=== PATIENT | female | born 1930 | race Caucasian/White ===

== ENCOUNTER 2017-02-10 10:23 | Inpatient (IN) ==
--- NOTE | 2017-02-10 11:16 | Emergency Department Note ---
Disposition Clinical Impression: Pulmonary mass, Atrial fibrillation with RVR, Acute CHF (congestive heart failure), Elevated troponin Disposition: Admitted As Inpatient Condition: Fair General Adult HPI - General Chief complaint: ED Shortness of Breath/Dyspnea Stated complaint: Difficulty in Breathing Time Seen by Provider: 02/10/17 10:41 Source: patient Mode of arrival: ambulatory Limitations: no limitations Nursing Notes Reviewed: Yes Vital Signs Reviewed: Yes - History of Present Illness HPI Narrative: 86 yo female presents with SOB and chest pressure x 2 wks. Worse with laying flat. Patient has dyspnea on exertion which has become significantly increased over the past few days.. +cough which is productive of yellow-green sputum. Does not take any medications. Multiple falls over the past few months. Patient states chest pain is a pressure in the center of her chest that does not radiate. Pain Scale: 4 - Related Data Home Medications Medication Instructions Recorded Confirmed No Known Home Drugs 02/10/17 02/10/17 Allergies Allergy/AdvReac Type Severity Reaction Status Date / Time diphenhydramine AdvReac Hallucinati Verified 02/10/17 15:13 [From Hernandez] ng All systems ED: reviewed and negative except as stated. Constitutional: Denies: fever, chills, weakness, weight change Cardiovascular: Reports: chest pain, dyspnea on exertion, orthopnea Respiratory: Reports: dyspnea. Denies: cough, wheezes, hemoptysis Gastrointestinal: Denies: abdominal pain, nausea, vomiting, diarrhea Past Medical History - Past Medical History Attestation: Yes The following information was validated with the patient. Source: patient Medical history: Reports: cancer Psychiatric history: Reports: no psych history - Social History Smoking Status: Current every day smoker Smokeless Tobacco Status: No Alcohol use: Reports: none Drug use: Reports: none Physical Exam General: Alert and in no acute distress Skin: Warm, dry, intact Head: Normocephalic and atraumatic Neck: Supple, trachea midline and no tenderness Cardiovascular: RRR, no murmur, normal perfusion Respiratory: Diminished breath sounds on the right however there is breast sounds bilaterally. Musculoskeletal: Normal strength, no tenderness, swelling or deformity GI: Soft, nontender, nondistended. Bowel sounds present Neuro: A&O to person, place, time and situation. No focal deficits noted on exam Psychiatric: cooperative and appropriate mood and affect. - General Limitations: no limitations General appearance: alert, in no apparent distress Course Vital Signs Temperature 97.9 F 02/10/17 10:24 Pulse Rate 96 02/10/17 10:24 Respiratory Rate 26 02/10/17 10:24 Blood Pressure 180/93 02/10/17 10:24 O2 Sat by Pulse Oximetry 91 02/10/17 10:24 Temperature 97.6 F 02/11/17 18:52 Pulse Rate 60 02/11/17 22:35 Respiratory Rate 16 02/11/17 22:35 Blood Pressure 99/56 02/11/17 18:52 O2 Sat by Pulse Oximetry 99 02/11/17 22:35 Oxygen Delivery Oxygen Delivery Nasal Cannula Medical Decision Making - MDM Narrative Medical decision making narrative: Patient developed acute onset atrial fibrillation with rapid ventricular rate. She did not complain of pain or have altered mental status however her blood pressure dropped to about 85 systolic. This improved with IV fluids. She was given Cardizem which further improved her blood pressure. Patient then spontaneously converted to a normal sinus rhythm. Patient will be admitted to the hospital for further evaluation of her A. fib with RVR as well as her right- sided lung mass and further evaluation of mass and pleural effusion - Medical Records Medical records reviewed: Yes I reviewed the patient's medical records. - Lab Data Lab results reviewed: Yes I reviewed the patient's lab results. Result diagrams: 02/11/17 07:05 02/11/17 07:05 Lab Results 02/10/17 02/10/17 02/10/17 Range/Units 11:29 11:29 11:29 WBC 9.5 (4.3-11.1) K/mcL RBC 4.35 (3.82-4.97) M/mcL Hgb 12.7 (11.5-15.4) g/dL Hct 41.3 (35.3-44.9) % MCV 94.9 (83.0-100.0) fL MCH 29.2 (28.0-33.3) pg MCHC 30.8 L (31.6-35.5) g/dL RDW 15.7 H (11.5-14.5) % Plt Count 256 (140-400) K/mcL MPV 9.5 (9.4-12.4) fL Immature Gran % 0.5 (0-4) % Seg Neutrophils % 84.5 % Lymphocytes % 5.7 % Monocytes % 8.1 % Eosinophils % 0.8 % Basophils % 0.4 % Neutrophils # 8.0 (1.6-8.9) K/mcL Lymphocytes # 0.5 L (0.6-4.6) K/mcL Monocytes # 0.8 (0.0-1.3) K/mcL Eosinophils # 0.1 (0.0-0.6) K/mcL Basophils # 0.0 (0.0-0.2) K/mcL Sodium 142 (136-145) mEq/L Potassium 4.6 H (3.5-4.5) mEq/L Chloride 109 (98-109) mEq/L Carbon Dioxide 28 (19-29) mEq/L BUN 29 H (7-20) mg/dL Creatinine 1.06 (0.57-1.11) mg/dL Est GFR ( Amer) 59 L (> 60) Est GFR (Non-Af Amer) 49 L (> 60) BUN/Creatinine Ratio 27 H (6-26) Glucose 113 H (70-99) mg/dL Calculated Osmolality 301 H (280-300) Lactic Acid 1.1 (0.5-2.2) mmol/L Calcium 8.5 L (8.6-10.8) mg/dL Troponin I (0-0.03) ng/mL B-Natriuretic Peptide (0-100) pg/mL 02/10/17 02/10/17 02/10/17 Range/Units 11:29 11:29 13:20 WBC (4.3-11.1) K/mcL RBC (3.82-4.97) M/mcL Hgb (11.5-15.4) g/dL Hct (35.3-44.9) % MCV (83.0-100.0) fL MCH (28.0-33.3) pg MCHC (31.6-35.5) g/dL RDW (11.5-14.5) % Plt Count (140-400) K/mcL MPV (9.4-12.4) fL Immature Gran % (0-4) % Seg Neutrophils % % Lymphocytes % % Monocytes % % Eosinophils % % Basophils % % Neutrophils # (1.6-8.9) K/mcL Lymphocytes # (0.6-4.6) K/mcL Monocytes # (0.0-1.3) K/mcL Eosinophils # (0.0-0.6) K/mcL Basophils # (0.0-0.2) K/mcL Sodium (136-145) mEq/L Potassium (3.5-4.5) mEq/L Chloride (98-109) mEq/L Carbon Dioxide (19-29) mEq/L BUN (7-20) mg/dL Creatinine (0.57-1.11) mg/dL Est GFR ( Amer) (> 60) Est GFR (Non-Af Amer) (> 60) BUN/Creatinine Ratio (6-26) Glucose (70-99) mg/dL Calculated Osmolality (280-300) Lactic Acid 1.0 (0.5-2.2) mmol/L Calcium (8.6-10.8) mg/dL Troponin I 0.07 H* (0-0.03) ng/mL B-Natriuretic Peptide 3138 H (0-100) pg/mL - Radiology Data Radiology results reviewed: Yes I reviewed the patient's radiology results. - EKG Data EKG #1 EKG attestation: Yes I reviewed and interpreted this EKG. EKG results narrative: EKG #1 -[address] depression in V5, B6 EKG #2 - heart rate [address] depression in V4, V5, V6 EKG #3 - heart rate 81, normal sinus rhythm with improved ST depression. Critical Care Time Critical Care Time: Yes Total Critical Care Time: 120 Attestation: The high probability of a clinically significant, sudden or life threatening deterioration of the perivascular and respiratory system(s) required my full and direct attention, intervention and personal management. The aggregate critical care time was 120 minutes. This time is in addition to time spent performing reported procedures but includes the following: x Data Review and interpretation x Patient assessment and monitoring of vital signs x Documentation x Medication orders and management
[2017-02-10 11:37] LABS: Basophils % 0.4 %; Eosinophils # 0.1 K/mcL (0.0-0.6); Eosinophils % 0.8 %; Hematocrit 41.3 % (35.3-44.9); Hemoglobin 12.7 g/dL (11.5-15.4); Immature Granulocytes % 0.5 % (0-4); Lymphocytes # 0.5 K/mcL (0.6-4.6); Lymphocytes % 5.7 %; Mean Corpuscular HGB Conc 30.8 g/dL (31.6-35.5); Mean Corpuscular Hemoglobin 29.2 pg (28.0-33.3); Mean Corpuscular Volume 94.9 fL (83.0-100.0); Mean Platelet Volume 9.5 fL (9.4-12.4); Monocytes # 0.8 K/mcL (0.0-1.3); Monocytes % 8.1 %; Platelet Count 256 K/mcL (140-400); Red Blood Count 4.35 M/mcL (3.82-4.97); Red Cell Distribution Width 15.7 % (11.5-14.5); Segmented Neutrophils % 84.5 %
[2017-02-10 11:49] LABS: Calcium 8.5 mg/dL (8.6-10.8); Potassium 4.6 mEq/L (3.5-4.5)
--- NOTE | 2017-02-10 13:15 | Electrocardiograph Report ---
[email or web address] Test Date: 2017-02-10 Pat Name: Drea Bains Department: 105 Room: Gender: F Director Hardware: : 1930 Requested By: Milton Sinclair Order Number: [id number] Reading MD: John Nesbitt DO Measurements Intervals [place] Rate: 95 P: ID: 0 QRS: -13 QRSD: 79 T: 27 QT: 333 QTc: 386 Interpretive Statements ATRIAL FIBRILLATION ST DEPRESSION, CONSIDER SUBENDOCARDIAL INJURY [0.1+ mV ST DEPRESSION] Electronically Signed On 02-10-2017 13:13:22 EDT by John Nesbitt DO
[2017-02-10] MEDS ORDERED: *HR* Adenosine 6 MG/2 ML SYRINGE IVP ONE (15:38)
[2017-02-10] MEDS ORDERED: 0.9 % Sodium Chloride 1,000 ML ONE (15:48)
[2017-02-10] MEDS ORDERED: Calcium Gluconate 1,000 MG in D5% in Water 100 ML IVPB ONE (15:49)
[2017-02-10] MEDS ORDERED: Naloxone 0.4 MG/ML INJ IVP PRN (16:26)
[2017-02-10] MEDS ORDERED: Acetaminophen 325 MG TABLET PO PRN (16:26)
[2017-02-10] MEDS ORDERED: Ondansetron 4 MG/2 ML VIAL IVP PRN (16:26)
[2017-02-10] MEDS ORDERED: 0.9 % Sodium Chloride 1,000 ML IVC SCH (16:30)
--- NOTE | 2017-02-10 17:02 | Internal Med History&Physical ---
Date of Encounter: 02/10/17 Time of Encounter: 16:00 Assessment and Plan (1) Community acquired pneumonia Current visit: Yes Status: Acute Patient has shortness of breath and cough. Yellowish sputum. Right-sided lung collapse. Consider community acquired pneumonia, but does still need to rule out malignancy. - We will place patient on azithromycin and Rocephin. - Blood culture and sputum culture. - Oxygen supportive treatment - Consult pulmonology. (2) Collapse of right lung Current visit: Yes Status: Acute Probably due to pneumonia or malignancy. Pulmonology consult. (3) Atrial fibrillation with rapid ventricular response Current visit: Yes Status: Acute Patient has no history of A. fib. When patient presented to ER, EKG shows A. fib. Later the patient developed rapid ventricular response. - Place patient on Cardizem drip. - Continuous cardiac monitoring. - I discussed that the anticoagulation option with patient's daughter, Shanika Miguel, she does not want start anticoagulation. Aspirin placed. - We will further consult cardiology for management. (4) Breast cancer Current visit: Yes Status: Acute History of breast cancer S/P surgery in 1984 Qualifiers: Breast location: unspecified site of breast Estrogen receptor status: unspecified Patient sex: female Laterality: unspecified laterality Qualified Code(s): C50.919 - Malignant neoplasm of unspecified site of unspecified female breast (5) Tobacco abuse Current visit: Yes Status: Acute Patient quit smoking for 2 weeks. (6) DVT prophylaxis Current visit: Yes Status: Acute EPCD, no heparin considering possible need bronchoscope. (7) Elevated troponin Current visit: Yes Status: Acute Patient has elevated troponin. Denies chest pain. Probably demand ischemia considering patient has A. fib. - We will check 3 sets of troponin - Continuous cardiac monitoring (8) Elevated brain natriuretic peptide (BNP) level Current visit: Yes Status: Acute Will check echocardiogram to rule out CHF. Appears euvolemic now. Internal Medicine - H&P: HPI Chief complaint: Shortness of breath and cough Admitted From: Home Plans for Post Hospital Care: Home History of present illness: Ms. Bains is a 86 year old female present to ER for weak and shortness of breath for 13 days. Patient is demented and history obtained from patient's daughter Shanika Miguel. Patient has no fever. The patient has a severe cough, with yellowish sputum. Patient has no chest pain but did complain heavy chest. Patient has no nausea, no diaphoresis, no sore throat, no runny nose. Patient can flat during night. In emergency room, CXR shows right lung collapse. CT chest shows suspected right lung tumor. Before patient was transferred to floor, she developed A. fib with RVR. Cardizem drip was started from ER. Patient will admitted for further management. I discussed the CODE STATUS with . Shanika Miguel, she said patient will be DNRCCA. Past Med Surg Social Fam HX - Past Medical History Medical history: cancer Psychiatric history: no psych history - Social History Smoking Status: Current every day smoker Smokeless Tobacco Status: No Alcohol use: none Drug use: none Internal Medicine - H&P: Meds No Known Home Drugs 02/10/17 [History] Allergies diphenhydramine [From Benadryl] Adverse Reaction (Verified 02/10/17 15:13) Hallucinating WENT "NUTS" All Systems PM: A 10-system review of systems was performed and is negative for pertinent findings except as documented above in the HPI. - Constitutional Constitutional: no chills, no fever(s), no night sweats - EENT Eyes: no change in vision, no discharge, no pain, no photophobia Ears: no ear discharge, no ear pain, no tinnitus Nose, mouth and throat: no dysphagia, no nasal discharge, no neck pain, no sore throat - Cardiovascular Cardiovascular ROS IM: no chest pain, no diaphoresis, no dyspnea, no lightheadedness, no palpitations, no syncope - Respiratory Respiratory: no cough, no dyspnea, no wheezing, no excessive phlegm production - Gastrointestinal Gastrointestinal: no abdominal pain, no diarrhea, no hematemesis, no hematochezia, no melena, no nausea, no vomiting - Genitourinary Genitourinary: no change in urinary stream, no dysuria, no flank pain, no hematuria - Musculoskeletal Musculoskeletal ROS IM: no numbness, no tingling - Integumentary Integumentary IM: no rash, no unusual bruising - Neurological Neurological ROS: no confusion, no convulsions, no focal weakness, no numbness, no tingling, no tremor(s) - Hematologic/Lymphatic Hematologic/Lymphatic: no easy bruising - Constitutional Vitals: Temp Pulse Resp BP Pulse Ox 97.9 F 144 24 111/75 94 02/10/17 10:24 02/10/17 16:40 02/10/17 16:40 02/10/17 16:40 02/10/17 16:40 General appearance: Present: A&O X 1, mild distress - Head Head exam: Present: atraumatic, normocephalic - Eye Eye exam: Present: PERRL, conjuntiva pink, sclera anicteric Pupils: Present: PERRL - Neck Neck exam general surgery: Present: supple, trachea midline. Absent: lymphadenopathy - Respiratory Respiratory exam: Present: decreased breath sounds (On right side), CTAB. Absent: accessory muscle use, rales, rhonchi, wheezes - Cardiovascular Cardiovascular exam: Present: irregular rhythm, +S1, +S2, tachycardia. Absent: diastolic murmur, gallop, rubs, systolic murmur - GI/Abdominal GI/Abdominal exam: Present: normal bowel sounds, soft, no peritoneal signs. Absent: distended, tenderness - Extremities Exam Extremities exam: Present: warm, radial pulses palpable and symetrical. Absent : calf tenderness, cyanotic, pedal edema - Neurological Exam Neurological exam: Present: CN II-XII intact, oriented X3, no focal deficits. Absent: pronater drift, facial droop, speech deficit - Skin Skin exam: Present: dry, intact Internal Med - H&P Results - Labs CBC & Chem 7: 02/10/17 11:29 02/10/17 11:29 - EKG Data -: EKG Interpreted by Myself (A. fib with rapid ventricular response)
[2017-02-10] MEDS ORDERED: *HR* Heparin 5,000 UNIT/ML VIAL SQ SCH (18:00)
--- NOTE | 2017-02-11 06:40 | Pulmonology Consult Note ---
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 Giving her long smoking history advanced age and prior history of malignancy pretest probability of malignancy with these radiographic findings is extremely high. Fortunately she is very frail debilitated and quite weak to start with indicating a poor performance status and treatment options are likely limited if this ends up being advanced malignancy. To this end and per patient's wishes at least in our brief discussion she does not want any significant invasive testing done e.g. bronchoscopy and I think that it would be prudent to begin with diagnostic/therapeutic thoracentesis with examination of cytology. She reports that she is willing to have this done if it will "make her feel better" which I think that it will likely will. Her presumed acute (although I favor that there is been a chronic process at play here) respiratory failure is multifactorial including likely undiagnosed COPD potential malignancy and heart failure. She is on approximately 3 L nasal cannula with saturation around 92% which is appropriate for her to continue to wean FIo2 to keep saturation greater than 88% From standpoint of pleural effusion as noted my first inclination is to describe this as a suspicion for malignant effusion however given elevated BNP there is possibility this could represent heart failure she was in the context of a Afib with rapid ventricular response. I will defer to the primary medicine service of what testing is warranted to further evaluate for this EEG echocardiogram cardiology consult etc. She does not have a leukocytosis and has remained afebrile I do not see any clear indication that this represent acute pneumonia and if sputum culture blood culture urine Legionella and strep pneumo are all negative at 48 hours I would recommend stopping treatment. Clearly with her advanced age debilitation and radiographic findings a palliative care consult would be reasonable to establish goals of care Incidentally and noticed that she has significant tracheal calcification which can in certain situations indicate diagnosis of amyloidosis sarcoidosis relapsing polychondritis among others. I do not feel that this is significantly contributing to acute presentation I do recommend continuation of chemical DVT prophylaxis unless otherwise contraindicated. I did reinforce the need to remain tobacco free I will attempt to contact her family meet with the patient and her family at bedside to have more discussion about her medical management (2) Pleural effusion Current Visit: Yes Status: Acute (3) Atrial fibrillation with rapid ventricular response Current Visit: Yes Status: Acute (4) Breast cancer Current Visit: Yes Status: Acute Qualifiers: Breast location: unspecified site of breast Estrogen receptor status: unspecified Patient sex: female Laterality: unspecified laterality Qualified Code(s): C50.919 - Malignant neoplasm of unspecified site of unspecified female breast (5) Tobacco abuse Current Visit: Yes Status: Acute (6) Elevated brain natriuretic peptide (BNP) level Current Visit: Yes Status: Acute History of Present Illness Consult date: 02/11/17 Requesting physician: Aric Reyes Reason for consult: abnormal CXR/CT Chief complaint: Dyspnea History of present illness: This is a 86-year-old woman with a medical history significant for tobacco abuse for what appears to be greater than 70 years prior history of breast cancer status post mastectomy in the early what it sounds like she has not been receiving routine medical evaluations at least as what she describes to me but has been having worsening dyspnea weight loss weakness fatigue and cough for at least the last 2 weeks and likely much longer. In fact the symptoms have gotten so bad that she had lost the desire to eat or even smoke. He presented to the emergency department yesterday for dyspnea found to be hypoxic and tachycardic CTA was performed negative for filling defect but notable for large right-sided pleural effusion and concern for right middle lobe obstructing tumor with associated volume loss along with mediastinal and clavicular lymphadenopathy. She was also noted to go into A. fib with rapid ventricular response and was placed on diltiazem drip she has been empirically treated for possibility of pneumonia with antimicrobials. She feels a bit better overall today but still very weak and dyspneic. When I spoke to her about how she is feeling overall she says that she wants some help but does not want to be put through any "more agony" Past Med Surg Social Fam HX - Past Medical History Medical history: cancer Psychiatric history: no psych history - Social History Smoking Status: Current every day smoker Smokeless Tobacco Status: No Alcohol use: none Drug use: none Medications and Allergies No Known Home Drugs 02/10/17 [History] Allergies diphenhydramine [From Benadryl] Adverse Reaction (Verified 02/10/17 15:13) Hallucinating WENT "NUTS" All Systems: A 10-system review of systems was performed and is negative for pertinent findings except as documented above in the HPI. Physical Examination Vital Signs: Vital Signs, Last 4 Hours Temp Pulse Resp BP Pulse Ox 02/11/17 06:28 97.7 F 66 14 111/61 99 02/11/17 04:16 99 02/11/17 04:01 97.7 F 60 16 117/61 97 General appearance: no acute distress, other (She is weak frail elderly woman who is significantly hard of hearing) Eyes: nonicteric ENT: oropharynx moist Neck: supple, lymphadenopathy Effort: mildly labored Auscultation: right: diminished breath sounds Cardiovascular: irregular rhythm Gastrointestinal: soft, non-tender Extremities: no cyanosis, no edema, no clubbing normal mental status, non-focal exam anxious Results - Laboratory Findings CBC and BMP: 02/11/17 07:05 02/10/17 11:29 Abnormal lab findings: Abnormal lab results MCHC 30.8 g/dL (31.6-35.5) L 02/10/17 11:29 RDW 15.7 % (11.5-14.5) H 02/10/17 11:29 Lymphocytes # 0.5 K/mcL (0.6-4.6) L 02/10/17 11:29 Potassium 4.6 mEq/L (3.5-4.5) H 02/10/17 11:29 BUN 29 mg/dL (7-20) H 02/10/17 11:29 Est GFR ( Amer) 59 (> 60) L 02/10/17 11:29 Est GFR (Non-Af Amer) 49 (> 60) L 02/10/17 11:29 BUN/Creatinine Ratio 27 (6-26) H 02/10/17 11:29 Glucose 113 mg/dL (70-99) H 02/10/17 11:29 Calculated Osmolality 301 (280-300) H 02/10/17 11:29 Calcium 8.5 mg/dL (8.6-10.8) L 02/10/17 11:29 Troponin I 0.06 ng/mL (0-0.03) H* 02/11/17 00:13 B-Natriuretic Peptide 3138 pg/mL (0-100) H 02/10/17 11:29 - Diagnostic Findings Chest x-ray: report reviewed, image reviewed CT scan - chest: report reviewed, image reviewed - Clinical Findings Intake & Output: Intake & Output 02/10/17 02/10/17 02/11/17 15:59 23:59 07:59 Intake Total 17.4 / 654.6 Output Total 200 / 200 Balance -182.6 / 454.6 Weight 41.368 kg Consult Discharge Plan - Plan Referrals: Dirk Zavala MD [Primary Care Provider] -
[2017-02-11] MEDS: Azithromycin 500 MG in D5% in Water 250 ML IVPB SCH ×2 (06:43→17:12)
[2017-02-11] MEDS: Aspirin Enteric Coated 81 MG Tablet PO SCH ×2 (06:43→10:05)
[2017-02-11 08:01] LABS: Basophils % 0.3 %; Eosinophils # 0.1 K/mcL (0.0-0.6); Eosinophils % 1.4 %; Hematocrit 40.5 % (35.3-44.9); Hemoglobin 12.1 g/dL (11.5-15.4); INR 1.1; Immature Granulocytes % 0.3 % (0-4); Lymphocytes # 0.5 K/mcL (0.6-4.6); Lymphocytes % 7.9 %; Mean Corpuscular HGB Conc 29.9 g/dL (31.6-35.5); Mean Corpuscular Hemoglobin 28.7 pg (28.0-33.3); Mean Corpuscular Volume 96.2 fL (83.0-100.0); Mean Platelet Volume 10.1 fL (9.4-12.4); Monocytes # 0.5 K/mcL (0.0-1.3); Monocytes % 6.9 %; Neutrophils # 5.4 K/mcL (1.6-8.9); Platelet Count 248 K/mcL (140-400); Red Blood Count 4.21 M/mcL (3.82-4.97); Red Cell Distribution Width 15.6 % (11.5-14.5); Segmented Neutrophils % 83.2 %
[2017-02-11 08:44] LABS: Calcium 8.2 mg/dL (8.6-10.8); Magnesium 1.8 mg/dL (1.6-2.6)
[2017-02-11 08:54] LABS: Thyroid Stimulating Hormone 6.811 mcIU/mL (0.350-4.840)
--- NOTE | 2017-02-11 09:24 | Cardiology Consult Note ---
Date of Encounter: 02/11/17 Time of Encounter: 09:19 Assessment and Plan (1) Atrial fibrillation with rapid ventricular response Current Visit: Yes Status: Acute New onset atrial fibrilation with RVR. Timining of onset unknown. She is asymptomatic. Likely exacerbated by possible lung mass and right lung collapse. On IV cardizem at 2.5 mg/hr with rate control. TTE pending. If normal EF will convert to oral cardizem. TSH mildly elevated. Recommendations per hospitalist. In regards to anticoagulation, she is a CHADS VASc =3 for age and gender. Not a good candidate for anticoagulation at this time secondary to new diagnosis of possible advance lung cancer. She is pending further work-up. She also lives alone and uses walker. Reports falls in the past. Asa 81 mg daily recommended. (2) Elevated troponin Current Visit: Yes Status: Acute Mild troponin elevation, 0.07, 0.05. 0.06, likely demand ischemia in the setting of atrial fibrillation with RVR and lung collapse. (3) Elevated brain natriuretic peptide (BNP) level Current Visit: Yes Status: Acute BNP elevation, 3138, may be secondary to lung collapse vs possible CHF. No significant fluid overload on exam. Pleural effusions may be related to malignancy. TTE pending. We will follow with you. Discussion w patient/family: The assessment and plan as outlined above was discussed with the patient and/or family members who expressed understanding and agreement. All questions were answered. Thank you for involving us in the care of your patient. Please call with any questions. History of Present Illness Consult date: 02/11/17 Requesting physician: Aric Reyes Consult reason: atrial fibrillation Chief complaint: SOB and cough for two weeks. History of present illness: Ms. Bains is a 86 year old female with a history of breast cancer s/p mastectomy and tobacco use who presented with SOB and cough for two weeks. She was found to have possible lung mass. CT of the chest showed large right and small left pleural effusions. Near complete collapse of the right lung, with airspace disease in the left lower lobe likely representing atelectasis as well. Suspected mass in the right middle lobe. There was mediastinal and right supraclavicular adenopathy. She is currently being evaluated by pulmonology for possible advanced malignancy. Cardiology is consulted for new atrial fibrillation. Initial EKG shows SR with frequent PAC. Yesterday afternoon a 3: 30pm she developed atrial fibrillation with RVR. She denies palpitations or chest pain. Denies previous history of afib. Cardizem IV gtt was started and she is now rate controlled. Past Med Surg Social Fam HX - Past Medical History Medical history: cancer Psychiatric history: no psych history - Social History Smoking Status: Current every day smoker Packs per day: 1 Smokeless Tobacco Status: No Alcohol use: none Drug use: none Medications and Allergies No Known Home Drugs 02/10/17 [History] Allergies diphenhydramine [From Benadryl] Adverse Reaction (Verified 02/10/17 15:13) Hallucinating WENT "NUTS" All Systems Review: A 10-system review of systems was performed and is negative for pertinent findings except as documented above in the HPI. Physical Examination Vital Signs, Last 4 Hours Temp Pulse Resp BP Pulse Ox 02/11/17 06:28 97.7 F 66 14 111/61 99 General: Conversant, No Apparent Distress, Other (Frail elderly female) HEENT: Atraumatic, Normocephaly, Mucus Membranes Moist Neck: No JVD, Normal carotid pulses Cardiac: Other (Irregularly irregular) Lungs: Other (Respirations easy. Faint rales in bilateral posterior bases. Diminished in upper lobes.) Neuro: Alert and responsive, No focal deficits noted Abdomen: Soft, Non-Tender Skin: No rashes noted on visualized skin Musculoskeletal: No Chest Wall Tenderness Extremities: No Clubbing, No Cyanosis, No Edema, Normal Pulses Results 02/11/17 07:05 02/11/17 07:05 Lab Results 02/10/17 02/11/17 02/11/17 20:20 00:13 07:05 WBC 6.5 Hgb 12.1 Hct 40.5 Plt Count 248 INR Sodium Potassium Chloride Carbon Dioxide BUN Creatinine Glucose Calcium Magnesium Troponin I 0.05 H* 0.06 H* TSH 02/11/17 02/11/17 07:05 07:05 WBC Hgb Hct Plt Count INR 1.1 Sodium 140 Potassium 5.0 H Chloride 109 Carbon Dioxide 28 BUN 27 H Creatinine 1.07 Glucose 98 Calcium 8.2 L Magnesium 1.8 Troponin I TSH 6.811 H Chest X-Ray 02/10/17 11:16 IMPRESSION: Near complete opacification of the right hemithorax. CT chest with IV contrast recommended for evaluation D/ / Patrick Velázquez MD / Patrick Velázquez MD Interpreting Provider: Patrick Velázquez MD Chest CTA 02/10/17 12:28 IMPRESSION: 1. No evidence of pulmonary embolism 2. Large right and small left pleural effusions. Near complete collapse of the right lung, with airspace disease in the left lower lobe likely representing atelectasis as well. Suspected mass in the right middle lobe 3. Mediastinal and right supraclavicular adenopathy D/ / Darrel Dejesus MD / Darrel Dejesus MD Interpreting Provider: Darrel Dejesus MD - Imaging and Cardiology Echo: pending - EKG Interpretation EKG results cardiology: personally reviewed (Atrial fibrillation with RVR) Consult Discharge Plan - Plan Referrals: Dirk Zavala MD [Primary Care Provider] -
[2017-02-11] MEDS ORDERED: 0.9 % Sodium Chloride 500 ML ONE (11:42)
--- NOTE | 2017-02-11 15:07 | Internal Med Progress Note ---
<Blanca Virgen - Last Filed: 02/11/17 17:26> Date of Encounter: 02/11/17 Time of Encounter: 11:30 - Assessment and plan (1) Collapse of right lung Current Visit: Yes Status: Acute Assessment and plan: Most likely due to advanced malignancy of the right middle lobe of lung with right and left-sided pleural effusion. Given history of breast cancer in smoking history (since 12yo 2-3pk/day) malignancy is likely may be undiagnosed COPD Pulmonology input is appreciated- patient does not want bronchoscopy thoracentesis performed- 1.1L straw colored fluid removed WBC normal Chest CTA- Large left and right pleural effusion, near complete collapse of right lung. In the left lower lobe likely atelectasis. Suspected mass in the right middle lobe. Mediastinal and right supraclavicular adenopathy. No evidence of PE chest x-ray- near complete opacification of the recommended thorax no clear indication of pneumonia- may discontinue antibiotics pending blood culture Plan blood culture pending pleural fluid cytology pending continue oxygen nasal cannula, continue to wean closely monitor patient (2) Atrial fibrillation with rapid ventricular response Current Visit: Yes Status: Acute Assessment and plan: Newly diagnosed A. fib most likely due to pulmonary issues of collapsed and mass stable HR 73 BP is stable 117/67 cardiology input appreciated- ASA and CCB Plan Rate controlled with Cardizem continue aspirin (3) Pleural effusion Current Visit: Yes Status: Acute Assessment and plan: Bilateral pleural effusion Chest CT- large right and small left pleural effusion. Near complete collapse of right lung. Suspected mass in the right middle lobe. Most likely due to malignancy in right lung Echo- LVEF 55% borderline increase in LV wall thickness, restrictive LV diastolic filling pattern. Dilated RV, moderate mitral regurgitation, mild- moderate tricuspid regurgitation Plan thoracentesis today pleural fluid cytology pending (4) Breast cancer Current Visit: Yes Status: Acute Assessment and plan: Breast cancer and mastectomy in 1984. Qualifiers: Breast location: unspecified site of breast Estrogen receptor status: unspecified Patient sex: female Laterality: unspecified laterality Qualified Code(s): C50.919 - Malignant neoplasm of unspecified site of unspecified female breast (5) Elevated TSH Current Visit: Yes Status: Acute Assessment and plan: May be undiagnosed hypothyroidism patient does not have a primary care physician and is not seen a doctor in an unknown amount of years TSH- 6.8 Plan may prescribe the levothyroxine (6) DVT prophylaxis Current Visit: Yes Status: Acute Assessment and plan: May continue heparin drip tomorrow depending on patient status/ vitals SCD - Subjective Interval history: Sitting up in bed talking with daughter. Her only complaint is the uncomfortable bed she denies fever, chills, chest pain, dyspnea, wheezing, nausea, vomiting, abdominal pain she admits to coughing with sputum production - Constitutional Vitals: Temp Pulse Resp BP Pulse Ox 97.7 F 84 18 103/66 98 02/11/17 11:29 02/11/17 13:08 02/11/17 14:05 02/11/17 14:05 02/11/17 14:05 General appearance: Present: A&O X 1, mild distress Exam: Gen.: Vitals noted. No acute distress. AAOx3 HEENT: PERRL, oropharynx clear, Normocephalic, atraumatic Neck: Supple. No adenopathy. Cardiac: irregular, no murmur, no rubs Pulmonary: CTA bilaterally, no wheezes, rales or rhonchi, equal chest expansion Abdomen: soft, nontender, Bowel sounds noted, no guarding Back: Nontender throughout. MSK: ROM intact, no joint swelling noted Extremities: no BLE edema, nontender calf, no cyanosis or clubbing Neuro: A&Ox3, moves all extremities, no focal deficits Psych: Appropriate mood and behavior Internal Medicine: Result - Labs CBC & Chem 7: 02/11/17 07:05 02/11/17 07:05 Labs: Short CBC 02/11/17 Range/Units 07:05 WBC 6.5 (4.3-11.1) K/mcL Hgb 12.1 (11.5-15.4) g/dL Hct 40.5 (35.3-44.9) % Plt Count 248 (140-400) K/mcL Neutrophils # 5.4 (1.6-8.9) K/mcL BMP 02/11/17 07:05 Sodium 140 Potassium 5.0 H Chloride 109 Carbon Dioxide 28 BUN 27 H Creatinine 1.07 Glucose 98 Calcium 8.2 L Cardiac Enzymes 02/10/17 02/11/17 Range/Units 20:20 00:13 Troponin I 0.05 H* 0.06 H* (0-0.03) ng/mL - ABG Interpretation ABG results: PT/INR, D-dimer PT 12.0 Seconds (9.4-12.1) 02/11/17 07:05 - Impressions Impressions Thoracentesis Ultrasound 02/11/17 11:37 IMPRESSION: Successful ultrasound guided thoracentesis. D/ / Bryce Valenzuela MD / Bryce Valenzuela MD Interpreting Provider: Bryce Valenzuela MD Chest X-Ray 02/11/17 13:42 IMPRESSION: 1. Small right apical pneumothorax status post recent thoracentesis. 2. Small bilateral pleural effusions. 3. Airspace disease throughout the right lung, most likely due to atelectasis, pneumonia or pulmonary edema. Results of this examination were communicated to Dr. Valenzuela at 2:15 p.m. on 02/11/2017. D/ / Joey Penn MD / Joey Penn MD Interpreting Provider: Joey Penn MD - VTE Documentation of Mechanical Device: Intermittent pneumatic compression device Consult Discharge Plan - Plan Referrals: Dirk Zavala MD [Primary Care Provider] - <Edgar Lopez P - Last Filed: 02/11/17 18:06> Date of Encounter: 02/11/17 - Constitutional Vitals: Temp Pulse Resp BP Pulse Ox 98.1 F 73 16 117/67 97 02/11/17 15:57 02/11/17 15:57 02/11/17 15:57 02/11/17 15:57 02/11/17 15:57 Internal Medicine: Result - Labs CBC & Chem 7: 02/11/17 07:05 02/11/17 07:05 Labs: Short CBC 02/11/17 Range/Units 07:05 WBC 6.5 (4.3-11.1) K/mcL Hgb 12.1 (11.5-15.4) g/dL Hct 40.5 (35.3-44.9) % Plt Count 248 (140-400) K/mcL Neutrophils # 5.4 (1.6-8.9) K/mcL BMP 02/11/17 07:05 Sodium 140 Potassium 5.0 H Chloride 109 Carbon Dioxide 28 BUN 27 H Creatinine 1.07 Glucose 98 Calcium 8.2 L Cardiac Enzymes 02/10/17 02/11/17 Range/Units 20:20 00:13 Troponin I 0.05 H* 0.06 H* (0-0.03) ng/mL - ABG Interpretation ABG results: PT/INR, D-dimer PT 12.0 Seconds (9.4-12.1) 02/11/17 07:05 - Impressions Impressions Thoracentesis Ultrasound 02/11/17 11:37 IMPRESSION: Successful ultrasound guided thoracentesis. D/ / Bryce Valenzuela MD / Bryce Valenzuela MD Interpreting Provider: Bryce Valenzuela MD Chest X-Ray 02/11/17 13:42 IMPRESSION: 1. Small right apical pneumothorax status post recent thoracentesis. 2. Small bilateral pleural effusions. 3. Airspace disease throughout the right lung, most likely due to atelectasis, pneumonia or pulmonary edema. Results of this examination were communicated to Dr. Valenzuela at 2:15 p.m. on 02/11/2017. D/ / Joey Penn MD / Joey Penn MD Interpreting Provider: Joey Penn MD Chest X-Ray 02/11/17 16:30 IMPRESSION: 1. There is no definite pneumothorax status post thoracentesis; however, if there is any clinical concern, inspiratory and expiratory upright views should be performed. 2. A layering right-sided pleural effusion persists along with some opacification of the right lung field. D/ / Sam Mukherjee / Sam Mukherjee Interpreting Provider: Sam Mukherjee - Attending Attestation I examined this patient and my medical decision-making was reviewed with the Resident Physician. I agree with the documented findings, disposition and treatment plan as described except to the extent set forth below. 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 of note: elevated TSH likely sick euthyroid syndrome PCP to follow up in 6 weeks post hospitalization.
[2017-02-11 15:30] LABS: Appearance of Pleural Fl Cloudy (Clear)
[2017-02-11 15:34] LABS: Glucose,Pleural Fluid 117 mg/dL (No Ref Range); LDH,Pleural Fluid 84 Units/L (No Ref Range); Total Protein,Pleural Fluid 2.4 g/dL (No Ref Range)
[2017-02-11 15:36] LABS: RBC,Pleural Fluid < 0.002 M/mcL
[2017-02-11] MEDS: Diltiazem CD (24hr) 180 MG CAPSULE PO SCH (15:43)
--- NOTE | 2017-02-11 17:44 | Electrocardiograph Report ---
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
--- NOTE | 2017-02-11 17:48 | Electrocardiograph Report ---
[place] [id number] Test Date: 2017-02-10 Pat Name: Drea Bains Department: 105 Room: 2A22 Gender: F Rn [place]: : 1930 Requested By: Mike Solorio Order Number: [id number] Reading MD: Delisa Dillard Measurements Intervals [place] Rate: 81 P: 17 [place]: 122 QRS: 21 QRSD: 85 T: 16 QT: 357 QTc: 395 Interpretive Statements SINUS RHYTHM WITH OCCASIONAL SUPRAVENTRICULAR PREMATURE COMPLEXES NONSPECIFIC ST ABNORMALITIES Electronically Signed On 02-11-2017 17:47:00 EDT by Delisa Dillard
[2017-02-11 20:31] LABS: Total Protein 5.6 g/dL (6.0-8.3)
[2017-02-11] MEDS: Melatonin 3 MG TABLET PO PRN (21:07)
--- NOTE | 2017-02-12 06:28 | Pulmonology Progress Note ---
Date of Encounter: 02/12/17 Time of Encounter: 09:15 Assessment and Plan (1) Collapse of right lung Current Visit: Yes Status: Acute A 69-year-old with past medical history of breast cancer long-time smoker suspected underlying COPD and newly diagnosed heart failure with preserved ejection fraction. I had a long discussion with the primary medicine service along with the family at bedside it does not appear at this point the patient was pursued diagnosis of what appears to be advanced malignancy. I did offer the patient possibility of bronchoscopy if she wanted to pursue this at this time she declines alternative possibility of diagnosis could be the supraclavicular lymph node. From standpoint of left pleural effusion this is transient data in nature lymphocytic predominant sometimes these can be misclassified and ended up being malignant although at first approximation I would chalk this up to her underlying heart failure which is being managed by the primary medicine service with cardiology input I think it is reasonable to treat the patient for 5-7 days based upon clinical course for pneumonia As mentioned previously a consultation with the palliative care service would be useful in establishing goals of care and to this and for palliative properties Pleurx catheter could be considered at some point down the line Pulmonary we will sign off at this time please feel free to give us a call for questions should arise or if more aggressive invasive diagnostic procedures are requested thank you for this consultation (2) Pleural effusion Current Visit: Yes Status: Acute (3) Atrial fibrillation with rapid ventricular response Current Visit: Yes Status: Acute (4) Breast cancer Current Visit: Yes Status: Acute Qualifiers: Breast location: unspecified site of breast Estrogen receptor status: unspecified Patient sex: female Laterality: unspecified laterality Qualified Code(s): C50.919 - Malignant neoplasm of unspecified site of unspecified female breast (5) Tobacco abuse Current Visit: Yes Status: Acute (6) Elevated brain natriuretic peptide (BNP) level Current Visit: Yes Status: Acute Subjective Principal diagnosis: Left pleural effusion Interval history: Status post thoracentesis today with small pneumothorax ex vacuo about a little over 1 L was removed patient feels marginally better after the procedure I repeat his CT scan yesterday which was notable for large right middle lobe lung mass with extensive mediastinal adenopathy. She feels about the same today although she is starting to endorse some chest heaviness which she felt before in general she is a bit more irascible than she has been last couple of days which seems to correlate with her baseline health Objective PUL Vital signs: Last Vital Signs Temp 97.7 F 02/12/17 04:22 Pulse 65 02/12/17 04:22 Resp 16 02/12/17 04:22 BP 114/55 02/12/17 04:22 Pulse Ox 100 02/12/17 04:22 General appearance: no acute distress Auscultation: bilateral: diminished breath sounds Cardiovascular: irregular rhythm Gastrointestinal: normoactive bowel sounds non-focal exam Results - Laboratory Findings CBC and BMP: 02/12/17 05:59 02/12/17 05:59 PT/INR, D-dimer PT 12.0 Seconds (9.4-12.1) 02/11/17 07:05 Abnormal lab findings: Abnormal lab results MCHC 29.9 g/dL (31.6-35.5) L 02/11/17 07:05 RDW 15.6 % (11.5-14.5) H 02/11/17 07:05 Lymphocytes # 0.5 K/mcL (0.6-4.6) L 02/11/17 07:05 Potassium 5.0 mEq/L (3.5-4.5) H 02/11/17 07:05 BUN 27 mg/dL (7-20) H 02/11/17 07:05 Est GFR ( Amer) 59 (> 60) L 02/11/17 07:05 Est GFR (Non-Af Amer) 49 (> 60) L 02/11/17 07:05 Calcium 8.2 mg/dL (8.6-10.8) L 02/11/17 07:05 Lactate Dehydrogenase 336 Units/L (159-327) H 02/11/17 18:48 Troponin I 0.06 ng/mL (0-0.03) H* 02/11/17 00:13 B-Natriuretic Peptide 3138 pg/mL (0-100) H 02/10/17 11:29 Serum Total Protein 5.6 g/dL (6.0-8.3) L 02/11/17 18:48 TSH 6.811 mcIU/mL (0.350-4.840) H 02/11/17 07:05 Pleural Appearance Cloudy (Clear) A 02/11/17 13:25 - Microbiology Findings Microbiology Findings: Microbiology, Last 48 Hours 02/10/17 20:20 Blood Culture - Preliminary Peripheral Venipuncture No growth. 02/10/17 20:18 Blood Culture - Preliminary Peripheral Venipuncture No growth. 02/11/17 13:25 Body Fluid Culture - Preliminary Pleural Fluid - Diagnostic Findings Chest x-ray: report reviewed, image reviewed CT scan - chest: report reviewed, image reviewed - Clinical Findings Intake & Output: Intake & Output 02/11/17 02/11/17 02/12/17 15:59 23:59 07:59 Intake Total 84.3 / 84.3 306 / 306 Output Total 1000 / 1000 300 / 300 Balance -915.7 / -915.7 6 / 6 Weight 40.823 kg - VTE Documentation of Mechanical Device: Intermittent pneumatic compression device Consult Discharge Plan - Plan Referrals: Dirk Zavala MD [Primary Care Provider] -
[2017-02-12 06:37] LABS: Alanine Aminotransferase 6 Units/L (0-55); Albumin 2.3 g/dL (3.5-5.0); Albumin/Globulin Ratio 0.8 (1.1-2.2); Alkaline Phosphatase 104 Units/L (38-126); Aspartate Amino Transferase 9 Units/L (5-34); BUN/Creatinine Ratio 27 (6-26); Blood Urea Nitrogen 31 mg/dL (7-20); Calcium 8.1 mg/dL (8.6-10.8); Carbon Dioxide 26 mEq/L (19-29); Chloride 108 mEq/L (98-109); Glucose 105 mg/dL (70-99); Osmolality,Calculated 293 (280-300); Potassium 4.6 mEq/L (3.5-4.5); Sodium 138 mEq/L (136-145); Total Protein 5.3 g/dL (6.0-8.3); eGFR For African Americans 54 (> 60); eGFR For Non-African Americans 45 (> 60)
[2017-02-12 06:41] LABS: Bilirubin,Total < 0.3 mg/dL (0.2-1.2)
[2017-02-12 07:59] LABS: Basophils % 0.3 %; Eosinophils # 0.1 K/mcL (0.0-0.6); Eosinophils % 1.1 %; Hemoglobin 11.3 g/dL (11.5-15.4); Immature Granulocytes % 0.3 % (0-4); Lymphocytes # 0.7 K/mcL (0.6-4.6); Lymphocytes % 7.6 %; Mean Corpuscular HGB Conc 30.5 g/dL (31.6-35.5); Mean Corpuscular Hemoglobin 29.4 pg (28.0-33.3); Mean Corpuscular Volume 96.1 fL (83.0-100.0); Mean Platelet Volume 10.4 fL (9.4-12.4); Monocytes # 0.8 K/mcL (0.0-1.3); Monocytes % 8.3 %; Neutrophils # 7.5 K/mcL (1.6-8.9); Platelet Count 233 K/mcL (140-400); Red Blood Count 3.85 M/mcL (3.82-4.97); Red Cell Distribution Width 15.7 % (11.5-14.5); Segmented Neutrophils % 82.4 %
[2017-02-12] MEDS: Aspirin Enteric Coated 81 MG Tablet PO SCH (09:13)
[2017-02-12] MEDS: Diltiazem CD (24hr) 180 MG CAPSULE PO SCH (09:13)
--- NOTE | 2017-02-12 09:47 | Internal Med Progress Note ---
<Blanca Virgen - Last Filed: 02/12/17 17:08> Date of Encounter: 02/12/17 Time of Encounter: 09:44 - Assessment and plan (1) Collapse of right lung Current Visit: Yes Status: Acute Assessment and plan: 02/12/2017 s/p thoracentesis patient is stable, 95% O2 with 2.5 L of oxygen chest [id number] right hydropneumothorax CT abd- small right pneumothorax, right hilar mass consistent with primary lung cancer. Post obstructive pneumonia in the right upper and lower lobe Blood culture - negative Pleural fluid culture prelim- demonstrates no growth only elevated WBC Pleural fluid culture final results are pending Pulmonology input is appreciated- patient does not want bronchoscopy Patient stated that she feels a heaviness and mild dyspnea, similar to what she had at admission family meeting on Friday to discuss the long-term treatment and care for the patient after reviewing final results of the pleural fluid analysis closely monitor patient continue azithromycin and Rocephin 02/11/2017 Most likely due to advanced malignancy of the right middle lobe of lung with right and left-sided pleural effusion. Given history of breast cancer in smoking history (since 12yo 2-3pk/day) malignancy is likely may be undiagnosed COPD Pulmonology input is appreciated- patient does not want bronchoscopy thoracentesis performed- 1.1L straw colored fluid removed WBC normal Chest CTA- Large left and right pleural effusion, near complete collapse of right lung. In the left lower lobe likely atelectasis. Suspected mass in the right middle lobe. Mediastinal and right supraclavicular adenopathy. No evidence of PE chest x-ray- near complete opacification of the recommended thorax no clear indication of pneumonia- may discontinue antibiotics pending blood culture Plan blood culture pending pleural fluid cytology pending continue oxygen nasal cannula, continue to wean closely monitor patient (2) Pleural effusion Current Visit: Yes Status: Acute Assessment and plan: 02/12/2017 s/p thoracentesis patient is stable, 95% O2 with 2.5 L of oxygen chest [id number] right hydropneumothorax CT abd- small right pneumothorax, right hilar mass consistent with primary lung cancer. Post obstructive pneumonia in the right upper and lower lobe Pleural fluid culture prelim- demonstrates no growth only elevated WBC Pleural fluid culture final results are pending Pulmonology input is appreciated- patient does not want bronchoscopy Patient stated that she feels a heaviness and mild dyspnea, similar to what she had at admission family meeting on Friday to discuss the long-term treatment and care for the patient after reviewing final results of the pleural fluid analysis closely monitor patient continue azithromycin and Rocephin 02/11/2017 Bilateral pleural effusion Chest CT- large right and small left pleural effusion. Near complete collapse of right lung. Suspected mass in the right middle lobe. Most likely due to malignancy in right lung Echo- LVEF 55% borderline increase in LV wall thickness, restrictive LV diastolic filling pattern. Dilated RV, moderate mitral regurgitation, mild- moderate tricuspid regurgitation Plan thoracentesis today pleural fluid cytology pending (3) Atrial fibrillation with rapid ventricular response Current Visit: Yes Status: Acute Assessment and plan: Newly diagnosed A. fib most likely due to pulmonary issues of collapsed and mass stable HR 71 BP is stable 106/62 cardiology input appreciated- ASA and CCB Plan Rate controlled with Cardizem continue aspirin (4) Breast cancer Current Visit: Yes Status: Acute Assessment and plan: Breast cancer and mastectomy in 1984. Qualifiers: Breast location: unspecified site of breast Estrogen receptor status: unspecified Patient sex: female Laterality: unspecified laterality Qualified Code(s): C50.919 - Malignant neoplasm of unspecified site of unspecified female breast (5) Elevated TSH Current Visit: Yes Status: Acute Assessment and plan: elevated TSH likely sick euthyroid syndrome follow up in 6 weeks post hospitalization with PCP TSH- 6.8 (6) DVT prophylaxis Current Visit: Yes Status: Acute Assessment and plan: SCD - Subjective Interval history: Sitting up in bed talking with daughter. She admits to dyspnea and pressure like sensation that is similar to when she arrived. Her only complaint is that she did not get much sleep due to late CT scan. she denies fever, chills, chest pain, wheezing, nausea, vomiting, abdominal pain - Constitutional Vitals: Temp Pulse Resp BP Pulse Ox 97.9 F 71 18 106/62 98 02/12/17 06:35 02/12/17 06:35 02/12/17 06:35 02/12/17 06:35 02/12/17 09:15 General appearance: Present: A&O X 1, mild distress Exam: Gen.: Vitals noted. No acute distress. AAOx3 HEENT: PERRL, oropharynx clear, Normocephalic, atraumatic Neck: Supple. The supraclavicular Adenopathy. Cardiac: irregular, no murmur, +S1/S2 no rub Pulmonary: right lobe diffuse rhonchi. no wheezes, equal chest expansion Abdomen: soft, nontender, Bowel sounds noted, no guarding MSK: no joint swelling noted Extremities: no BLE edema, nontender calf, no cyanosis or clubbing Neuro: A&Ox3, moves all extremities, no focal deficits Psych: Appropriate mood and behavior Internal Medicine: Result - Labs CBC & Chem 7: 02/12/17 05:59 02/12/17 05:59 Labs: Short CBC 02/12/17 Range/Units 05:59 WBC 9.1 (4.3-11.1) K/mcL Hgb 11.3 L (11.5-15.4) g/dL Hct 37.0 (35.3-44.9) % Plt Count 233 (140-400) K/mcL Neutrophils # 7.5 (1.6-8.9) K/mcL BMP 02/12/17 05:59 Sodium 138 Potassium 4.6 H Chloride 108 Carbon Dioxide 26 BUN 31 H Creatinine 1.15 H Glucose 105 H Calcium 8.1 L Liver Function 02/12/17 Range/Units 05:59 Total Bilirubin < 0.3 (0.2-1.2) mg/dL AST 9 (5-34) Units/L ALT 6 (0-55) Units/L Alkaline Phosphatase 104 (38-126) Units/L Albumin 2.3 L (3.5-5.0) g/dL - ABG Interpretation ABG results: PT/INR, D-dimer PT 12.0 Seconds (9.4-12.1) 02/11/17 07:05 - Impressions Impressions Thoracentesis Ultrasound 02/11/17 11:37 IMPRESSION: Successful ultrasound guided thoracentesis. D/ / Bryce Valenzuela MD / Bryce Valenzuela MD Interpreting Provider: Bryce Valenzuela MD Chest X-Ray 02/11/17 13:42 IMPRESSION: 1. Small right apical pneumothorax status post recent thoracentesis. 2. Small bilateral pleural effusions. 3. Airspace disease throughout the right lung, most likely due to atelectasis, pneumonia or pulmonary edema. Results of this examination were communicated to Dr. Valenzuela at 2:15 p.m. on 02/11/2017. D/ / Joey Penn MD / Joey Penn MD Interpreting Provider: Joey Penn MD Chest X-Ray 02/11/17 16:30 IMPRESSION: 1. There is no definite pneumothorax status post thoracentesis; however, if there is any clinical concern, inspiratory and expiratory upright views should be performed. 2. A layering right-sided pleural effusion persists along with some opacification of the right lung field. D/ / Sam Mukherjee / Sam Mukherjee Interpreting Provider: Sam Mukherjee Chest CT 02/11/17 18:20 IMPRESSION: 1. Post thoracentesis. There is a small anterior right pneumothorax. 2. Large right pleural effusion has mildly decreased since the prior examination. Moderate left pleural effusion has mildly increased in size since the prior examination. 3. Infiltrative right hilar mass is consistent with primary lung malignancy. Mass is suboptimally evaluated, due to absence of intravenous contrast and presence of adjacent airspace disease and pleural fluid. There is paratracheal, subcarinal, and left supraclavicular metastatic adenopathy. 4. There is right middle lobar collapse. Airspace opacities in the right upper and lower lobe may reflect postobstructive pneumonia. Interstitial thickening in the right perihilar lung may reflect edema. However lymphangitic carcinomatosis cannot be excluded. 5. 3.2 x 1.9 cm left adrenal nodule. Partially visualized low-attenuation hepatic lesions are incompletely assessed on the basis of this examination. The findings were sent to the Radiology Results Communication [facility] at 9:50 pm on 02/11/2017to be communicated to a licensed caregiver. D/ /11/2017 22:17:45 Shae Pemberton MD / sergio Interpreting Provider: Shae Pemberton MD - VTE Documentation of Mechanical Device: Intermittent pneumatic compression device Consult Discharge Plan - Plan Referrals: Dirk Zavala MD [Primary Care Provider] - <Edgar Lopez P - Last Filed: 02/12/17 17:50> Date of Encounter: 02/12/17 - Constitutional Vitals: Temp Pulse Resp BP Pulse Ox 97.8 F 76 16 113/66 92 02/12/17 15:01 02/12/17 15:01 02/12/17 15:01 02/12/17 15:01 02/12/17 15:01 Internal Medicine: Result - Labs CBC & Chem 7: 02/12/17 05:59 02/12/17 05:59 Labs: Short CBC 02/12/17 Range/Units 05:59 WBC 9.1 (4.3-11.1) K/mcL Hgb 11.3 L (11.5-15.4) g/dL Hct 37.0 (35.3-44.9) % Plt Count 233 (140-400) K/mcL Neutrophils # 7.5 (1.6-8.9) K/mcL BMP 02/12/17 05:59 Sodium 138 Potassium 4.6 H Chloride 108 Carbon Dioxide 26 BUN 31 H Creatinine 1.15 H Glucose 105 H Calcium 8.1 L Liver Function 02/12/17 Range/Units 05:59 Total Bilirubin < 0.3 (0.2-1.2) mg/dL AST 9 (5-34) Units/L ALT 6 (0-55) Units/L Alkaline Phosphatase 104 (38-126) Units/L Albumin 2.3 L (3.5-5.0) g/dL - ABG Interpretation ABG results: PT/INR, D-dimer PT 12.0 Seconds (9.4-12.1) 02/11/17 07:05 - Impressions Impressions Chest CT 02/11/17 18:20 IMPRESSION: 1. Post thoracentesis. There is a small anterior right pneumothorax. 2. Large right pleural effusion has mildly decreased since the prior examination. Moderate left pleural effusion has mildly increased in size since the prior examination. 3. Infiltrative right hilar mass is consistent with primary lung malignancy. Mass is suboptimally evaluated, due to absence of intravenous contrast and presence of adjacent airspace disease and pleural fluid. There is paratracheal, subcarinal, and left supraclavicular metastatic adenopathy. 4. There is right middle lobar collapse. Airspace opacities in the right upper and lower lobe may reflect postobstructive pneumonia. Interstitial thickening in the right perihilar lung may reflect edema. However lymphangitic carcinomatosis cannot be excluded. 5. 3.2 x 1.9 cm left adrenal nodule. Partially visualized low-attenuation hepatic lesions are incompletely assessed on the basis of this examination. The findings were sent to the Radiology Results Communication Center at 9:50 pm on 02/11/2017to be communicated to a licensed caregiver. D/ /11/2017 22:17:45 Shae Pemberton MD / sergio Interpreting Provider: Shae Pemberton MD Chest X-Ray 02/12/17 07:00 IMPRESSION: There is a moderate right hydropneumothorax, small apical component of which is air. Finding is likely related to incomplete re-expansion of the right lung. No midline shift. The apical air component has diminished but the overall size is likely minimally changed accounting for interval reaccumulation of fluid in that region. D/ / Patrick Velázquez MD / Patrick Velázquez MD Interpreting Provider: Patrick Velázquez MD - Attending Attestation I examined this patient and my medical decision-making was reviewed with the Resident Physician. I agree with the documented findings, disposition and treatment plan as described except to the extent set forth below.
[2017-02-12] MEDS: Azithromycin 500 MG in D5% in Water 250 ML IVPB SCH (17:09)
[2017-02-13 02:04] LABS: Basophils % 0.2 %; Eosinophils # 0.1 K/mcL (0.0-0.6); Eosinophils % 0.6 %; Hemoglobin 11.6 g/dL (11.5-15.4); Immature Granulocytes % 0.5 % (0-4); Lymphocytes # 0.6 K/mcL (0.6-4.6); Lymphocytes % 6.5 %; Mean Corpuscular HGB Conc 31.4 g/dL (31.6-35.5); Mean Corpuscular Hemoglobin 29.5 pg (28.0-33.3); Mean Corpuscular Volume 94.1 fL (83.0-100.0); Mean Platelet Volume 10.8 fL (9.4-12.4); Monocytes # 0.8 K/mcL (0.0-1.3); Monocytes % 8.5 %; Platelet Count 219 K/mcL (140-400); Red Blood Count 3.93 M/mcL (3.82-4.97); Red Cell Distribution Width 15.6 % (11.5-14.5); Segmented Neutrophils % 83.7 %
[2017-02-13 02:25] LABS: Calcium 8.1 mg/dL (8.6-10.8); Potassium 4.6 mEq/L (3.5-4.5)
[2017-02-13] MEDS ORDERED: *HR* Metoprolol 5 MG/5 ML VIAL IVP ONE (04:23)
[2017-02-13] MEDS ORDERED: 0.9 % Sodium Chloride 500 ML ONE (05:07)
[2017-02-13] MEDS ORDERED: 0.9 % Sodium Chloride 500 ML IVC ONE (05:10)
[2017-02-13] MEDS: Aspirin Enteric Coated 81 MG Tablet PO SCH (10:18)
[2017-02-13] MEDS: Diltiazem CD (24hr) 180 MG CAPSULE PO SCH (10:18)
--- NOTE | 2017-02-13 10:47 | Internal Med Progress Note ---
<Blanca Virgen - Last Filed: 02/13/17 14:50> Date of Encounter: 02/13/17 Time of Encounter: 10:00 - Assessment and plan (1) Collapse of right lung Current Visit: Yes Status: Acute Assessment and plan: 02/13/2017 continue azithromycin and Rocephin patient denies dyspnea and wheezing she is stable, 97% O2 on 2.5L of oxygen continue to monitor the patient for respiratory distress Pleural fluid culture prelim- demonstrates no growth only elevated WBC Pleural fluid cytology and smear final results are pending family meeting tomorrow to discuss the long-term treatment and care for the patient after reviewing final results of the pleural fluid analysis PT/OT evaluation today possible discharge tomorrow- patient is to possibly go to [facility] patient complained of diarrhea- C.Diff test was ordered closely monitor patient 02/12/2017 s/p thoracentesis patient is stable, 95% O2 with 2.5 L of oxygen chest [id number] right hydropneumothorax CT abd- small right pneumothorax, right hilar mass consistent with primary lung cancer. Post obstructive pneumonia in the right upper and lower lobe Blood culture - negative Pleural fluid culture prelim- demonstrates no growth only elevated WBC Pleural fluid culture final results are pending Pulmonology input is appreciated- patient does not want bronchoscopy Patient stated that she feels a heaviness and mild dyspnea, similar to what she had at admission family meeting on Friday to discuss the long-term treatment and care for the patient after reviewing final results of the pleural fluid analysis closely monitor patient continue azithromycin and Rocephin 02/11/2017 Most likely due to advanced malignancy of the right middle lobe of lung with right and left-sided pleural effusion. Given history of breast cancer in smoking history (since 12yo 2-3pk/day) malignancy is likely may be undiagnosed COPD Pulmonology input is appreciated- patient does not want bronchoscopy thoracentesis performed- 1.1L straw colored fluid removed WBC normal Chest CTA- Large left and right pleural effusion, near complete collapse of right lung. In the left lower lobe likely atelectasis. Suspected mass in the right middle lobe. Mediastinal and right supraclavicular adenopathy. No evidence of PE chest x-ray- near complete opacification of the recommended thorax no clear indication of pneumonia- may discontinue antibiotics pending blood culture Plan blood culture pending pleural fluid cytology pending continue oxygen nasal cannula, continue to wean closely monitor patient (2) Pleural effusion Current Visit: Yes Status: Acute Assessment and plan: 02/13/2017 continue azithromycin and Rocephin patient denies dyspnea and wheezing she is stable, 97% O2 on 2.5L of oxygen continue to monitor the patient for respiratory distress Pleural fluid culture prelim- demonstrates no growth only elevated WBC Pleural fluid cytology and smear final results are pending 02/12/2017 s/p thoracentesis patient is stable, 95% O2 with 2.5 L of oxygen chest [id number] right hydropneumothorax CT abd- small right pneumothorax, right hilar mass consistent with primary lung cancer. Post obstructive pneumonia in the right upper and lower lobe Pleural fluid culture prelim- demonstrates no growth only elevated WBC Pleural fluid culture final results are pending Pulmonology input is appreciated- patient does not want bronchoscopy Patient stated that she feels a heaviness and mild dyspnea, similar to what she had at admission family meeting on Friday to discuss the long-term treatment and care for the patient after reviewing final results of the pleural fluid analysis closely monitor patient continue azithromycin and Rocephin 02/11/2017 Bilateral pleural effusion Chest CT- large right and small left pleural effusion. Near complete collapse of right lung. Suspected mass in the right middle lobe. Most likely due to malignancy in right lung Echo- LVEF 55% borderline increase in LV wall thickness, restrictive LV diastolic filling pattern. Dilated RV, moderate mitral regurgitation, mild- moderate tricuspid regurgitation Plan thoracentesis today pleural fluid cytology pending (3) Atrial fibrillation with rapid ventricular response Current Visit: Yes Status: Acute Assessment and plan: Newly diagnosed A. fib most likely due to pulmonary issues of collapsed and mass patient became tachycardic in the night and was given metoprolol- which improved her heart rate stable HR 80 BP is stable 122/69 cardiology input appreciated- ASA and CCB Plan Rate controlled with Cardizem continue aspirin (4) Breast cancer Current Visit: Yes Status: Acute Assessment and plan: Breast cancer and mastectomy in 1984 no longer see an oncologist Qualifiers: Breast location: unspecified site of breast Estrogen receptor status: unspecified Patient sex: female Laterality: unspecified laterality Qualified Code(s): C50.919 - Malignant neoplasm of unspecified site of unspecified female breast (5) Elevated TSH Current Visit: Yes Status: Acute Assessment and plan: elevated TSH likely sick euthyroid syndrome follow up in 6 weeks post hospitalization with PCP TSH- 6.8 on day 2 of admission (6) DVT prophylaxis Current Visit: Yes Status: Acute Assessment and plan: SCD - Subjective Interval history: Laying in bed comfortably napping her only complainant is diarrhea throughout the night she denies dyspnea, fever, chills, chest pain, wheezing, nausea, vomiting, abdominal pain - Constitutional Vitals: Temp Pulse Resp BP Pulse Ox 97.9 F 76 20 122/77 97 02/13/17 08:32 02/13/17 08:32 02/13/17 08:32 02/13/17 08:32 02/13/17 08:32 General appearance: Present: A&O X 1, mild distress Exam: Gen.: Vitals noted. No acute distress. AAOx3 HEENT: PERRL/EOMI, oropharynx clear, Normocephalic, atraumatic Neck: Supple. No adenopathy. Cardiac: irregular, no murmur, +S1/S2 Pulmonary: CTA bilaterally, course breath sounds in bases, no wheezes, rales or rhonchi, equal chest expansion Abdomen: soft, nontender, Bowel sounds noted, no guarding Extremities: no BLE edema, nontender calf, no cyanosis or clubbing Neuro: A&Ox3, moves all extremities, no focal deficits Psych: Appropriate mood and behavior Internal Medicine: Result - Labs CBC & Chem 7: 02/13/17 01:07 02/13/17 01:07 Labs: Short CBC 02/13/17 Range/Units 01:07 WBC 9.5 (4.3-11.1) K/mcL Hgb 11.6 (11.5-15.4) g/dL Hct 37.0 (35.3-44.9) % Plt Count 219 (140-400) K/mcL Neutrophils # 8.0 (1.6-8.9) K/mcL BMP 02/13/17 01:07 Sodium 139 Potassium 4.6 H Chloride 107 Carbon Dioxide 25 BUN 31 H Creatinine 1.07 Glucose 97 Calcium 8.1 L - ABG Interpretation ABG results: PT/INR, D-dimer PT 12.0 Seconds (9.4-12.1) 02/11/17 07:05 - Impressions Impressions Chest X-Ray 02/12/17 07:00 IMPRESSION: There is a moderate right hydropneumothorax, small apical component of which is air. Finding is likely related to incomplete re-expansion of the right lung. No midline shift. The apical air component has diminished but the overall size is likely minimally changed accounting for interval reaccumulation of fluid in that region. D/ / Patrick Velázquez MD / Patrick Velázquez MD Interpreting Provider: Patrick Velázquez MD - VTE Documentation of Mechanical Device: Intermittent pneumatic compression device Consult Discharge Plan - Plan Referrals: Dirk Zavala MD [Primary Care Provider] - <Edgar Lopez - Last Filed: 02/13/17 18:11> Date of Encounter: 02/13/17 - Constitutional Vitals: Temp Pulse Resp BP Pulse Ox 96.9 F L 72 15 99/53 94 02/13/17 16:34 02/13/17 16:34 02/13/17 16:34 02/13/17 16:34 02/13/17 16:34 Internal Medicine: Result - Labs CBC & Chem 7: 02/13/17 01:07 02/13/17 01:07 Labs: Short CBC 02/13/17 Range/Units 01:07 WBC 9.5 (4.3-11.1) K/mcL Hgb 11.6 (11.5-15.4) g/dL Hct 37.0 (35.3-44.9) % Plt Count 219 (140-400) K/mcL Neutrophils # 8.0 (1.6-8.9) K/mcL BMP 02/13/17 01:07 Sodium 139 Potassium 4.6 H Chloride 107 Carbon Dioxide 25 BUN 31 H Creatinine 1.07 Glucose 97 Calcium 8.1 L - ABG Interpretation ABG results: PT/INR, D-dimer PT 12.0 Seconds (9.4-12.1) 02/11/17 07:05 - Attending Attestation I examined this patient and my medical decision-making was reviewed with the Resident Physician. I agree with the documented findings, disposition and treatment plan as described except to the extent set forth below. family meeting tomorrow may d/c to rehab after that if diarrhoea is better
[2017-02-13] MEDS: Azithromycin 500 MG in D5% in Water 250 ML IVPB SCH (16:06)
[2017-02-13] MEDS: Melatonin 3 MG TABLET PO PRN (21:56)
[2017-02-14 02:45] LABS: Basophils % 0.2 %; Eosinophils # 0.1 K/mcL (0.0-0.6); Eosinophils % 0.8 %; Hematocrit 39.1 % (35.3-44.9); Hemoglobin 12.1 g/dL (11.5-15.4); Immature Granulocytes % 0.4 % (0-4); Lymphocytes # 0.6 K/mcL (0.6-4.6); Lymphocytes % 6.4 %; Mean Corpuscular HGB Conc 30.9 g/dL (31.6-35.5); Mean Corpuscular Hemoglobin 29.5 pg (28.0-33.3); Mean Corpuscular Volume 95.4 fL (83.0-100.0); Mean Platelet Volume 10.4 fL (9.4-12.4); Monocytes # 0.8 K/mcL (0.0-1.3); Monocytes % 8.3 %; Neutrophils # 7.8 K/mcL (1.6-8.9); Platelet Count 215 K/mcL (140-400); Red Cell Distribution Width 15.8 % (11.5-14.5); Segmented Neutrophils % 83.9 %
[2017-02-14 02:57] LABS: Calcium 8.3 mg/dL (8.6-10.8); Potassium 4.4 mEq/L (3.5-4.5)
[2017-02-14] MEDS: Diltiazem CD (24hr) 180 MG CAPSULE PO SCH (08:48)
[2017-02-14] MEDS: Aspirin Enteric Coated 81 MG Tablet PO SCH (08:49)
--- NOTE | 2017-02-14 09:32 | Internal Med Progress Note ---
<VirgenBlanca - Last Filed: 02/14/17 13:58> Date of Encounter: 02/14/17 Time of Encounter: 09:31 - Assessment and plan (1) Collapse of right lung Current Visit: Yes Status: Acute Assessment and plan: Family meeting today with Dr. Lopez, Dr. Xiao, and Dr. Virgen. The patient's to family members (daughter & son) were present alongside the patient. On CT a lung mass consistent with primary lung cancer was discussed with the patient and her family members. It was recommended that a biopsy be taken to determine if it is lung cancer. The patient and her family all agreed that they did not want to further investigate the lung mass. The risks and benefits were explained to them and they stated a clear understanding. The family stated that they want the patient to receive comfort care and to treat all symptoms that may arise such as dyspnea, blood pressure, pain, etc. Palliative care was consulted and asked to see the patient. The family and physicians all agreed to the treatment plan of this patient. It was expressed that we are in no [place] to move her. She is to go to [facility] upon discharge for further care. s/p thoracentesis patient denies dyspnea and wheezing patient is stable, 98% O2 with 2.[address] abd- small right pneumothorax, right hilar mass consistent with primary lung cancer. Post obstructive pneumonia in the right upper and lower lobe Pulmonology has signed off - patient does not want bronchoscopy or to investigate further the lung mass chest [id number] right hydropneumothorax Pleural fluid culture- no growth Blood culture preliminary- no growth PT/OT evaluation- recommends SNF C.Diff test was negative Plan continue azithromycin and Rocephin blood culture final pending closely monitor patient's vitals and comfort (2) Pleural effusion Current Visit: Yes Status: Acute Assessment and plan: Same as above s/p thoracentesis patient denies dyspnea and wheezing patient is stable, 98% O2 with 2.[address] abd- small right pneumothorax, right hilar mass consistent with primary lung cancer. Post obstructive pneumonia in the right upper and lower lobe Pulmonology has signed off - patient does not want bronchoscopy or to investigate further the lung mass Echo- LVEF 55% borderline increase in LV wall thickness, restrictive LV diastolic filling pattern. Dilated RV, moderate mitral regurgitation, mild- moderate tricuspid regurgitation chest [id number] right hydropneumothorax Pleural fluid culture- no growth Plan continue azithromycin and Rocephin blood culture final pending closely monitor patient's vitals and comfort (3) Atrial fibrillation with rapid ventricular response Current Visit: Yes Status: Acute Assessment and plan: Newly diagnosed A. fib most likely due to pulmonary issues of collapsed and mass patient became tachycardic this morning. She was given a bolus of Cardizem and then put on a Cardizem drip, along with IV fluids HR 119 BP is stable 111/67 cardiology input appreciated- signed off. ASA and CCB Plan Rate control with Cardizem- will continue to titrate may add Lopressor continue aspirin will continue to closely monitor her heart rate and blood pressure (4) Breast cancer Current Visit: Yes Status: Acute Assessment and plan: Breast cancer and mastectomy in 1984 no longer see an oncologist Qualifiers: Breast location: unspecified site of breast Estrogen receptor status: unspecified Patient sex: female Laterality: unspecified laterality Qualified Code(s): C50.919 - Malignant neoplasm of unspecified site of unspecified female breast (5) Elevated TSH Current Visit: Yes Status: Acute Assessment and plan: elevated TSH likely sick euthyroid syndrome follow up in 6 weeks post hospitalization with PCP TSH- 6.8 on day 2 of admission (6) Pressure ulcer of coccygeal region Current Visit: Yes Status: Acute Assessment and plan: The patient arrived to the hospital with a stage II to pressure ulcer on her coccyx treatment is with Allevyn continue to checked and change dressing nurse has recommended patient to lay on her side Qualifiers: Pressure ulcer stage: stage 2 Qualified Code(s): L89.152 - Pressure ulcer of sacral region, stage 2 (7) DVT prophylaxis Current Visit: Yes Status: Acute Assessment and plan: SCD - Subjective Interval history: Laying in bed comfortably napping her only complainant is diarrhea she denies dyspnea, fever, chills, chest pain, wheezing, nausea, vomiting, abdominal pain her nurse informed me that she became tachycardic and hypotensive- I came to see the patient and treatment was given - Constitutional Vitals: Temp Pulse Resp BP Pulse Ox 97.6 F 53 16 102/51 95 02/14/17 07:03 02/14/17 07:03 02/14/17 07:03 02/14/17 07:03 02/14/17 07:03 General appearance: Present: A&O X 1, mild distress Exam: Gen.: Vitals noted. No acute distress. AAOx3 HEENT: PERRL, oropharynx clear, Normocephalic, atraumatic Neck: Supple. No adenopathy. Cardiac: irregular, no murmur, +S1/S2, no rubs Pulmonary: course breath sounds bilaterally, no wheezes, rales or rhonchi, equal chest expansion Abdomen: soft, nontender, Bowel sounds noted, no guarding Extremities: no BLE edema, nontender calf, no cyanosis or clubbing Neuro: A&Ox3, moves all extremities, no focal deficits Psych: Appropriate mood and behavior Internal Medicine: Result - Labs CBC & Chem 7: 02/14/17 02:29 02/14/17 02:29 Labs: Short CBC 02/14/17 Range/Units 02:29 WBC 9.3 (4.3-11.1) K/mcL Hgb 12.1 (11.5-15.4) g/dL Hct 39.1 (35.3-44.9) % Plt Count 215 (140-400) K/mcL Neutrophils # 7.8 (1.6-8.9) K/mcL BMP 02/14/17 02:29 Sodium 138 Potassium 4.4 Chloride 106 Carbon Dioxide 26 BUN 28 H Creatinine 1.08 Glucose 105 H Calcium 8.3 L - ABG Interpretation ABG results: PT/INR, D-dimer PT 12.0 Seconds (9.4-12.1) 02/11/17 07:05 - Impressions Impressions Chest CT 02/11/17 18:20 IMPRESSION: 1. Post thoracentesis. There is a small anterior right pneumothorax. 2. Large right pleural effusion has mildly decreased since the prior examination. Moderate left pleural effusion has mildly increased in size since the prior examination. 3. Infiltrative right hilar mass is consistent with primary lung malignancy. Mass is suboptimally evaluated, due to absence of intravenous contrast and presence of adjacent airspace disease and pleural fluid. There is paratracheal, subcarinal, and left supraclavicular metastatic adenopathy. 4. There is right middle lobar collapse. Airspace opacities in the right upper and lower lobe may reflect postobstructive pneumonia. Interstitial thickening in the right perihilar lung may reflect edema. However lymphangitic carcinomatosis cannot be excluded. 5. 3.2 x 1.9 cm left adrenal nodule. Partially visualized low-attenuation hepatic lesions are incompletely assessed on the basis of this examination. The findings were sent to the Radiology Results Communication [facility] at 9:50 pm on 02/11/2017to be communicated to a licensed caregiver. D/ / 02/11/2017 22:17:45 Shae Pemberton MD / sergio Interpreting Provider: Shae Pemberton MD - VTE Documentation of Mechanical Device: Intermittent pneumatic compression device Consult Discharge Plan - Plan Referrals: Dirk Zavala MD [Primary Care Provider] - <Edgar Lopez P - Last Filed: 02/14/17 17:25> Date of Encounter: 02/14/17 - Constitutional Vitals: Temp Pulse Resp BP Pulse Ox 97.5 F L 100 16 99/65 95 02/14/17 16:04 02/14/17 16:04 02/14/17 16:04 02/14/17 16:04 02/14/17 16:04 Internal Medicine: Result - Labs CBC & Chem 7: 02/14/17 02:29 02/14/17 02:29 Labs: Short CBC 02/14/17 Range/Units 02:29 WBC 9.3 (4.3-11.1) K/mcL Hgb 12.1 (11.5-15.4) g/dL Hct 39.1 (35.3-44.9) % Plt Count 215 (140-400) K/mcL Neutrophils # 7.8 (1.6-8.9) K/mcL BMP 02/14/17 02:29 Sodium 138 Potassium 4.4 Chloride 106 Carbon Dioxide 26 BUN 28 H Creatinine 1.08 Glucose 105 H Calcium 8.3 L - ABG Interpretation ABG results: PT/INR, D-dimer PT 12.0 Seconds (9.4-12.1) 02/11/17 07:05 - Impressions Impressions Chest CT 02/11/17 18:20 IMPRESSION: 1. Post thoracentesis. There is a small anterior right pneumothorax. 2. Large right pleural effusion has mildly decreased since the prior examination. Moderate left pleural effusion has mildly increased in size since the prior examination. 3. Infiltrative right hilar mass is consistent with primary lung malignancy. Mass is suboptimally evaluated, due to absence of intravenous contrast and presence of adjacent airspace disease and pleural fluid. There is paratracheal, subcarinal, and left supraclavicular metastatic adenopathy. 4. There is right middle lobar collapse. Airspace opacities in the right upper and lower lobe may reflect postobstructive pneumonia. Interstitial thickening in the right perihilar lung may reflect edema. However lymphangitic carcinomatosis cannot be excluded. 5. 3.2 x 1.9 cm left adrenal nodule. Partially visualized low-attenuation hepatic lesions are incompletely assessed on the basis of this examination. The findings were sent to the Radiology Results Communication Center at 9:50 pm on 02/11/2017to be communicated to a licensed caregiver. D/ / 02/11/2017 22:17:45 Shae Pemberton MD / sergio Interpreting Provider: Shae Pemberton MD - Attending Attestation I examined this patient and my medical decision-making was reviewed with the Resident Physician. I agree with the documented findings, disposition and treatment plan as described except to the extent set forth below.
[2017-02-14] MEDS ORDERED: 0.9 % Sodium Chloride 1,000 ML IVC SCH (09:45)
[2017-02-14] MEDS: 0.9 % Sodium Chloride 1,000 ML IVC SCH ×2 (12:23→20:40)
[2017-02-14] MEDS: Azithromycin 250 MG TABLET PO SCH (17:01)
[2017-02-14] MEDS: Melatonin 3 MG TABLET PO PRN (20:39)
[2017-02-15] MEDS: 0.9 % Sodium Chloride 1,000 ML IVC SCH ×2 (06:57→17:08)
[2017-02-15] MEDS: Aspirin Enteric Coated 81 MG Tablet PO SCH (09:29)
[2017-02-15] MEDS: Diltiazem CD (24hr) 180 MG CAPSULE PO SCH (09:29)
--- NOTE | 2017-02-15 10:10 | Internal Med Progress Note ---
Date of Encounter: 02/15/17 Time of Encounter: 10:06 - Assessment and plan (1) Collapse of right lung Current Visit: Yes Status: Acute Assessment and plan: Patient has a right lung collapse secondary to massive pleural effusion. Pulmonology was consulted and there was a likely presence of a mass underlying the pleural effusion. Pleural effusion was aspirated and was sent for evaluation. Noted that few atypical cells were seen. Presently on IV ceftriaxone/azithromycin. Plan: Patient and family not keen for any further investigation. Please see the detailed note from Dr. Virgen regarding family meeting. We will continue antibiotics at this point. Close observation. (2) Community acquired pneumonia Current Visit: Yes Status: Acute Assessment and plan: Day 5 of antibiotics. Noted that patient has a diarrhea. C. difficile is negative. We will discontinue antibiotics tomorrow. (3) Atrial fibrillation with rapid ventricular response Current Visit: Yes Status: Acute Assessment and plan: Presently patient's heart rate is very well controlled with the normal blood pressure. Plan: Will discontinue IV Cardizem. We will continue oral Cardizem for now. Patient is not a candidate for anticoagulation in view of her underlying pulmonary mass. (4) Breast cancer Current Visit: Yes Status: Acute Assessment and plan: Breast cancer and mastectomy in 1984 no longer see an oncologist Qualifiers: Breast location: unspecified site of breast Estrogen receptor status: unspecified Patient sex: female Laterality: unspecified laterality Qualified Code(s): C50.919 - Malignant neoplasm of unspecified site of unspecified female breast (5) DVT prophylaxis Current Visit: Yes Status: Acute Assessment and plan: scd. Patient need a placement. Medical decision making: This patient has a moderate to severe risk of worsening clinical in spite of being on appropriate medication due to the underlying probable neoplastic condition - Subjective Interval history: Patient seen and examined. Chart reviewed. Patient is comfortably lying in bed. Patient had 2 episodes of diarrhea. Patient denies shortness of breath, chest pain, abdominal pain, nausea, vomiting or dizziness - Constitutional Vitals: Temp Pulse Resp BP Pulse Ox 97.6 F 85 15 124/70 99 02/15/17 06:00 02/15/17 06:00 02/15/17 06:00 02/15/17 06:00 02/15/17 06:00 General appearance: Present: A&O X 1, mild distress - Head Head exam: Present: atraumatic, normocephalic - Eye Eye exam: Present: PERRL, conjuntiva pink, sclera anicteric Pupils: Present: PERRL - Neck Neck exam general surgery: Present: supple, trachea midline. Absent: lymphadenopathy - Respiratory Respiratory exam: Present: CTAB. Absent: accessory muscle use, rales, rhonchi, wheezes - Cardiovascular Cardiovascular exam: Present: RRR, +S1, +S2. Absent: diastolic murmur, gallop, rubs, systolic murmur - GI/Abdominal GI/Abdominal exam: Present: normal bowel sounds, soft, no peritoneal signs. Absent: distended, tenderness - Extremities Exam Extremities exam: Present: warm, radial pulses palpable and symetrical. Absent : calf tenderness, cyanotic, pedal edema - Neurological Exam Neurological exam: Present: CN II-XII intact, oriented X3, no focal deficits. Absent: pronater drift, facial droop, speech deficit - Skin Skin exam: Present: dry, intact Internal Medicine: Result - Labs CBC & Chem 7: 02/14/17 02:29 02/14/17 02:29 - ABG Interpretation ABG results: PT/INR, D-dimer PT 12.0 Seconds (9.4-12.1) 02/11/17 07:05 - VTE Documentation of Mechanical Device: Intermittent pneumatic compression device Consult Discharge Plan - Plan Referrals: Dirk Zavala MD [Primary Care Provider] -
[2017-02-15] MEDS: Azithromycin 250 MG TABLET PO SCH (17:09)
[2017-02-16] MEDS ORDERED: 0.9 % Sodium Chloride 500 ML IVC ONE (02:17)
[2017-02-16] MEDS: Ipratropium/Albuterol Neb 3 ML IH PRN ×2 (04:07→10:44)
[2017-02-16] MEDS ORDERED: Amiodarone 150 MG in D5% in Water 100 ML IVPB ONE (04:32)
--- NOTE | 2017-02-16 04:45 | Event Note ---
Date of Encounter: 02/16/17 Time of Encounter: 04:40 Was called by nurse to see patient as her heart rate was in AFib RVR with rates in 150s. Code status is DNR - CCA. She had been on PO Cardizem during the day with adequate rate control, however she required Cardizem drip earlier this morning without successful conversion back to NSR. In addition her blood pressures were borderline low and she was given 500 mL bolus, which made her short of breath shortly after. She had been treated for a hydropneumothorax and has known pleural effusion, so further fluids were held. She is currently asymptomatic but her blood pressures still remain borderline. Cardizem drip will be stopped and replaced with Amiodarone drip and she will be moved to for closer care. Nurse informed family via phone about transferring and both patient and family agreed with the plan.
[2017-02-16] MEDS ORDERED: Amiodarone Premix 150 MG/100 ML BAG IVPB ONE (05:00)
[2017-02-16] MEDS: 0.9 % Sodium Chloride 1,000 ML IVC SCH ×2 (05:22→10:41)
[2017-02-16] MEDS ORDERED: Amiodarone Premix 360 MG/200 ML BAG IVC ONE (05:30)
[2017-02-16] MEDS: Aspirin Enteric Coated 81 MG Tablet PO SCH (08:38)
[2017-02-16] MEDS: Diltiazem CD (24hr) 180 MG CAPSULE PO SCH (08:38)
[2017-02-16] MEDS ORDERED: *HR* Morphine 2 MG/ML SYRINGE IVP PRN (11:03)
[2017-02-16] MEDS: Amiodarone Premix 360 MG/200 ML BAG IVC SCH ×2 (11:14→20:36)
[2017-02-16] MEDS ORDERED: *HR* LORazepam 2 MG/ML VIAL IVP PRN ×3 (11:30→14:15)
--- NOTE | 2017-02-16 13:47 | Palliative - Consult Note ---
Date of Encounter: 02/16/17 Time of Encounter: 12:30 - Assessment and Plan (1) Goals of care, counseling/discussion Current Visit: Yes Status: Acute Assessment and plan: Patient in bed sleeping, surrounded by family. Daughter and DEVONTE Voss ), granddaughter and patent's sister at bedside. Reviewed patients POC up till now and discussed desire for comfort care. Patient with Lung mass consistent with primary lung cancer noted on CT. Patient very clear that she doesn't desire invasive aggressive interventions for biopsy to confirm lung cancer. Patient is now DNR - Comfort Care and I explained the interventions that support this status. All labs, diagnostics and medications reviewed. Patient and family desire to stop IV fluids, stop antibiotics but they desire to continue heart medications that includes current Amiodarone gtt. I explained the function of medications and they desire the patient be comfortable with her rate and rhythm. I explained that transition to po would taking place and they are OK with po meds for cardiac support as they see this comforting to her. I explained that she is fragile with poor overall functional status. Continue Morphine, Ativan, and comfort medications. Bedside Bipap as needed. Discussed transition to hospice care tomorrow once they feel Amiodarone can be DC'd. Terminal diagnosis of Lung Cancer. Patient is DNRCC - Comfort Care (2) Dyspnea Current Visit: No Status: Acute Assessment and plan: Patient reports finally resting well. Continue Morphine and supplemental O2 as needed. Did not tolerate bipap but it is at bedside if needed. HOB up. Duonebs ordered. Qualifiers: Dyspnea type: unspecified Qualified Code(s): R06.00 - Dyspnea, unspecified (3) Anxiety Current Visit: Yes Status: Acute Assessment and plan: Anxiety induced from SOB. Increase to every 4 hrs from 6 hrs. Patient reports relief when receiving. (4) Atrial fibrillation with RVR Current Visit: Yes Status: Acute Assessment and plan: per Hospitalist - Amiodarone gtt infusing (5) Pleural effusion Current Visit: Yes Status: Acute (6) Pulmonary mass Current Visit: Yes Status: Acute Palliative-CN HPI - Data of Consult Patient: new to practice Consult date: 02/16/17 Requesting Physician: Edgar Lopez MD Primary Care Provider: Giselle Izaguirre - Consult Narrative Palliative Care/Comfort Measures: Palliative care Reason for consult: Goals of Care History of present illness: Ms. Bains is a 86 year old female with years tobacco abuse and breast cancer from 1984. She was admitted with dyspnea, SOB, cough, weight loss and fatigue. Patient reports these symptoms for 2-weeks prior to admission. CTA revealed a large right sided pleural effusion and concern for right middle lobe obstructing tumor with associated volume loss along with mediastinal and clavicular lymphadenopathy. The patient had a Thorcentesis on 02/11 with the removal of 1.1 L of straw colored fluid. showed few atypical cells. Dr. Lopez conducted meeting explaining that CT scan shows lung mass consistent with primary lung cancer but patient refuses to have biopsy. In addition, the patient has has atrial fibrillation requiring cardizem and now an Amiodarone gtt. Case discussed with Dr. Lopez and patient and family desire comfort with no aggressive intervention. This palliative care consult is for goals of care discussion. CC: Edgar Lopez MD Past Med Surg Social Fam HX - Past Medical History Medical history: cancer Psychiatric history: no psych history - Social History Smoking Status: Current every day smoker Packs per day: 1 Smokeless Tobacco Status: No Alcohol use: none Drug use: none Medications and Allergies No Known Home Drugs 02/10/17 [History] Allergies diphenhydramine [From Benadryl] Adverse Reaction (Verified 02/10/17 15:13) Hallucinating WENT "NUTS" All systems: reviewed and no additional remarkable complaints except as stated ( SOB, dyspnea, cough, fatigue and weight loss) - Constitutional Constitutional ROS PAL: decreased appetite, fatigue - EENT Eyes: requires corrective lenses Ears: decreased hearing - Cardiovascular Cardiovascular ROS: dyspnea on exertion, orthopnea - Respiratory Respiratory: cough, dyspnea - Gastrointestinal Gastrointestinal: nausea - Musculoskeletal Musculoskeletal ROS IM: muscle weakness - Neurological Neurological ROS: weakness - Psychiatric Psychiatric general PM: anxiety (from SOB) Palliative Care-Exam - Constitutional Vitals: Temp Pulse Resp BP Pulse Ox 97.5 F L 123 27 150/82 87 02/16/17 11:21 02/16/17 11:49 02/16/17 11:21 02/16/17 11:21 02/16/17 11:21 General appearance: Present: cooperative, no acute distress - Head Head Exam: Present: atraumatic, normal inspection, normocephalic - Eye Eye exam: Present: PERRL - ENT ENT exam: Present: mucous membranes moist - Respiratory Respiratory exam: Present: decreased breath sounds - Expanded Respiratory Exam Location: decreased breath sounds: Left, Right, Lower, rales: Right - Cardiovascular Cardiovascular exam: Present: irregular rhythm, +S1, +S2, tachycardia - Expanded Cardiovascular Exam Peripheral pulses: 1+: Femoral (L) PM, Femoral (R) PM, Posterior Tibialis (L), Posterior Tibialis (R), 2+: Carotid (L) PM, Carotid (R) PM, Radial (L), Radial ( R), Dorsalis Pedis (L) PM, Dorsalis Pedis (R) PM - GI/Abdominal Exam GI/Abdominal exam: Present: normal bowel sounds, soft - Extremities Exam Extremities exam: Present: full ROM - Expanded Upper Extremities Exam Shoulder exam: Present: full ROM Upper Arm exam: Present: full ROM - Neurological Exam Neurological exam: Present: alert, oriented X3 - Expanded Neurological Exam Coma Scale Eye Opening: Spontaneous Coma Scale Motor Response: Obeys Commands Coma Scale Verbal Response: Oriented Coma Scale Total: 15 Internal Medicine - CN: Reslt - Labs CBC & Chem 7: 02/14/17 02:29 02/14/17 02:29 - ABG Interpretation ABG results: PT/INR, D-dimer PT 12.0 Seconds (9.4-12.1) 02/11/17 07:05 Consult Discharge Plan - Plan Referrals: Dirk Zavala MD [Primary Care Provider] - Palliative Quality Palliative Quality: Screen for Code Status: Yes, Screen for Goals of Care: Yes, Screen for Pain: Yes, If Pain Regimen Started, Initiate Bowel Regimen: Yes, Screen for Nausea/Vomitting: Yes Code Status: 02/16/17 11:29 CODE [Resuscitation Status: Active] [RES] Routine Comment: Resuscitation Status: DNR-Comfort Care
--- NOTE | 2017-02-16 15:41 | Internal Med Progress Note ---
Date of Encounter: 02/16/17 Time of Encounter: 15:39 - Assessment and plan (1) Atrial fibrillation with rapid ventricular response Current Visit: Yes Status: Acute Assessment and plan: Presently patient's heart rate is very well controlled with the normal blood pressure. Plan: Will discontinue IV Cardizem. We will continue oral Cardizem for now. Patient is not a candidate for anticoagulation in view of her underlying pulmonary mass. 02/16/2017. Noted that overnight patient was transferred from medical floor to stepdown unit. Had a long discussion with the family. Family thinks that patient needs to be more comfortable. Options of palliative care/hospice discussed at length. Patient's family members is keen to have a palliative care/hospice on the board. (2) Collapse of right lung Current Visit: Yes Status: Acute Assessment and plan: Patient has a right lung collapse secondary to massive pleural effusion. Pulmonology was consulted and there was a likely presence of a mass underlying the pleural effusion. Pleural effusion was aspirated and was sent for evaluation. Noted that few atypical cells were seen. Presently on IV ceftriaxone/azithromycin. Plan: Patient and family not keen for any further investigation. Please see the detailed note from Dr. Virgen regarding family meeting. We will continue antibiotics at this point. Close observation. 02/16/2017 Pathology report is suggestive of a atypical cells. In view of lung mass/extensive pleural effusion, the atypical cells on likely from a malignancy. We will continue present management. (3) Community acquired pneumonia Current Visit: Yes Status: Acute Assessment and plan: Day 5 of antibiotics. Noted that patient has a diarrhea. C. difficile is negative. We will discontinue antibiotics tomorrow. (4) Breast cancer Current Visit: Yes Status: Acute Assessment and plan: Breast cancer and mastectomy in 1984 no longer see an oncologist Qualifiers: Breast location: unspecified site of breast Estrogen receptor status: unspecified Patient sex: female Laterality: unspecified laterality Qualified Code(s): C50.919 - Malignant neoplasm of unspecified site of unspecified female breast (5) DVT prophylaxis Current Visit: Yes Status: Acute Assessment and plan: scd. Patient need a placement. Medical decision making: This patient has a moderate to severe risk of worsening clinical in spite of being on appropriate medication due to the underlying probable neoplastic condition - Subjective Interval history: Patient seen and examined. Chart reviewed. Patient is comfortably lying in bed. Patient had 2 episodes of diarrhea. Patient denies shortness of breath, chest pain, abdominal pain, nausea, vomiting or dizziness 02/16/2017. Patient seen and examined. Chart reviewed. Patient is lying in the bed. Patient denies chest pain, abdominal pain, dizziness or diarrhea. Patient is occasionally short of breath. Patient's family at bedside. - Constitutional Vitals: Temp Pulse Resp BP Pulse Ox 97.5 F L 70 27 150/82 87 02/16/17 11:21 02/16/17 15:01 02/16/17 11:21 02/16/17 11:21 02/16/17 11:21 General appearance: Present: A&O X 1, mild distress - Head Head exam: Present: atraumatic, normocephalic - Eye Eye exam: Present: PERRL, conjuntiva pink, sclera anicteric Pupils: Present: PERRL - Neck Neck exam general surgery: Present: supple, trachea midline. Absent: lymphadenopathy - Respiratory Respiratory exam: Present: CTAB. Absent: accessory muscle use, rales, rhonchi, wheezes - Cardiovascular Cardiovascular exam: Present: RRR, +S1, +S2. Absent: diastolic murmur, gallop, rubs, systolic murmur - GI/Abdominal GI/Abdominal exam: Present: normal bowel sounds, soft, no peritoneal signs. Absent: distended, tenderness - Extremities Exam Extremities exam: Present: warm, radial pulses palpable and symetrical. Absent : calf tenderness, cyanotic, pedal edema - Neurological Exam Neurological exam: Present: CN II-XII intact, oriented X3, no focal deficits. Absent: pronater drift, facial droop, speech deficit - Skin Skin exam: Present: dry, intact Internal Medicine: Result - Labs CBC & Chem 7: 02/14/17 02:29 02/14/17 02:29 - ABG Interpretation ABG results: PT/INR, D-dimer PT 12.0 Seconds (9.4-12.1) 02/11/17 07:05 - VTE Documentation of Mechanical Device: Intermittent pneumatic compression device Consult Discharge Plan - Plan Referrals: Dirk Zavala MD [Primary Care Provider] -
[2017-02-16] MEDS: Ipratropium/Albuterol Neb 3 ML IH SCH ×4 (15:43→23:51)
[2017-02-16] MEDS ORDERED: *HR* LORazepam 2 MG/ML VIAL IVP SCH (16:00)
--- NOTE | 2017-02-16 19:02 | Electrocardiograph Report ---
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
[2017-02-17] MEDS: Ipratropium/Albuterol Neb 3 ML IH SCH ×2 (03:51→08:54)
--- NOTE | 2017-02-17 07:47 | Internal Med Progress Note ---
Date of Encounter: 02/17/17 Time of Encounter: 07:43 - Assessment and plan (1) Atrial fibrillation with rapid ventricular response Current Visit: Yes Status: Acute Assessment and plan: Amidoarone gtt stopped overnight secondary to bradycardia. HR stable this AM in the 70's, NSR. Patient is unable to tolerate PO cardizem. IV access lost this AM, family requests no further IV sticks and understands that she can't receive medications for rate control. Patient will transfer to palliative with comfort care measures today, pending bed availability. Plan: Discontinue Oral and IV meds Patient will transfer to palliative bed on comfort care as bed is available (2) Collapse of right lung Current Visit: Yes Status: Acute Assessment and plan: Patient has a right lung collapse secondary to massive pleural effusion. Pulmonology was consulted and there was a likely presence of a mass underlying the pleural effusion. Pleural effusion was aspirated and was sent for evaluation. Noted that few atypical cells were seen. Patient family does not wish to pursue treatment and patient is going to transfer to palliative unit. (3) Community acquired pneumonia Current Visit: Yes Status: Acute Assessment and plan: Antibiotics will be discontinued. (4) Breast cancer Current Visit: Yes Status: Acute Assessment and plan: Breast cancer and mastectomy in 1984 Qualifiers: Qualified Code(s): C50.919 - Malignant neoplasm of unspecified site of unspecified female breast - Subjective Interval history: The patient was seen and examined at bedside, daughter present. Overnight her amiodarone gtt was stopped secondary to bradycardia. HR stable at 75 SR this AM. Patient sleeping, but arouses to voice and becomes agitated with exam. Patient complains of back pain, denies CP or SOB. Patient will transfer to palliative care today pending bed availability. Pt family does not desire further IV therapy, requests comfort care only. - Constitutional Vitals: Temp Pulse Resp BP Pulse Ox 94.5 F L 71 28 130/45 90 02/17/17 00:44 02/17/17 00:44 02/17/17 00:44 02/17/17 00:44 02/17/17 07:22 General appearance: Present: cachectic, mild distress - Head Head exam: Present: atraumatic, normocephalic - ENT ENT exam: Present: mucous membranes dry - Respiratory Respiratory exam: Present: rhonchi - Cardiovascular Cardiovascular exam: Present: RRR - GI/Abdominal GI/Abdominal exam: Present: normal bowel sounds, soft. Absent: tenderness - Extremities Exam Extremities exam: Present: normal capillary refill, normal inspection, pedal edema, radial pulses palpable and symetrical. Absent: calf tenderness - Neurological Exam Additional comments: Patient sleeping, but becomes agitated with exam - Skin Skin exam: Present: dry, intact, pallor, warm Internal Medicine: Result - Labs CBC & Chem 7: 02/14/17 02:29 02/14/17 02:29 - ABG Interpretation ABG results: PT/INR, D-dimer PT 12.0 Seconds (9.4-12.1) 02/11/17 07:05 - VTE Documentation of Mechanical Device: Intermittent pneumatic compression device Consult Discharge Plan - Plan Referrals: Dirk Zavala MD [Primary Care Provider] -
[2017-02-17 07:53] VITALS: BP 126/45
[2017-02-17] MEDS: Aspirin Enteric Coated 81 MG Tablet PO SCH (08:08)
[2017-02-17] MEDS: Diltiazem CD (24hr) 180 MG CAPSULE PO SCH (08:08)
[2017-02-17] MEDS ORDERED: Morphine Oral CONC 5 MG/0.25 ML ORAL.SYG PO PRN (09:25)
[2017-02-17] MEDS ORDERED: *HR* LORazepam Oral Conc 2 MG/ML SL PRN (09:26)
[2017-02-17] MEDS ORDERED: Atropine Sulfate 1% 40 DROP/2 ML BOTTLE SL PRN (09:26)
--- NOTE | 2017-02-17 09:31 | Palliative Progress Note ---
Date of Encounter: 02/17/17 Time of Encounter: 09:30 - Assessment and plan (1) Dyspnea Current Visit: Yes Status: Acute Assessment and plan: IV access lost - will transition MOrphine to oral concentrate. Continue supportive oxygen. Family asking for d/c of nebulizers, as this agitates her. (2) Generalized pain Current Visit: Yes Status: Acute Assessment and plan: Utilize Roxanol as montior (3) Goals of care, counseling/discussion Current Visit: Yes Status: Acute Assessment and plan: Patient family at bedside - desire comfort care only. Discussed transition to general inpt hospice care for intense symptom management and they are agreeable. ZHENG/ Dr Lopez. Patient will be discharged and transitioned to inpt hospice. - Time Spent With Patient Total time spent is greater than 50% in coordination of care (as documented) at patient's floor/unit and/or counseling patient: 25 - 35 minutes - Subjective Interval history: Patient resting quietly - does become restless with assessment. Daughter Stew and granddaughter at bedside. State she becomes very agitated with stimulation and breathing treatments "make her crazy". IV access was lost this am, and they do not desire any further sticks or IV therapy, and asking only for comfort care. They understand that we do not have a route at this point to give cardiac medications, as she is unable to take po meds. - Constitutional Vitals: Abnormal lab results MCHC 30.9 g/dL (31.6-35.5) L 02/14/17 02:29 RDW 15.8 % (11.5-14.5) H 02/14/17 02:29 BUN 28 mg/dL (7-20) H 02/14/17 02:29 Est GFR ( Amer) 58 (> 60) L 02/14/17 02:29 Est GFR (Non-Af Amer) 48 (> 60) L 02/14/17 02:29 Glucose 105 mg/dL (70-99) H 02/14/17 02:29 Calcium 8.3 mg/dL (8.6-10.8) L 02/14/17 02:29 Lactate Dehydrogenase 336 Units/L (159-327) H 02/11/17 18:48 Troponin I 0.06 ng/mL (0-0.03) H* 02/11/17 00:13 B-Natriuretic Peptide 3138 pg/mL (0-100) H 02/10/17 11:29 Serum Total Protein 5.3 g/dL (6.0-8.3) L 02/12/17 05:59 Albumin 2.3 g/dL (3.5-5.0) L 02/12/17 05:59 Albumin/Globulin Ratio 0.8 (1.1-2.2) L 02/12/17 05:59 TSH 6.811 mcIU/mL (0.350-4.840) H 02/11/17 07:05 Pleural Appearance Cloudy (Clear) A 02/11/17 13:25 General appearance: Present: mild distress - Respiratory Additional comments: Rhonchi throughout lung william. + upper airway congestion as well - Cardiovascular Cardiovascular exam: Present: irregular rhythm, tachycardia - GI/Abdominal GI/Abdominal exam: Present: normal bowel sounds, soft - Extremities Exam Extremities exam: Present: normal capillary refill, normal inspection - Neurological Exam Additional comments: Sleeping - becomes agitated with assessment. Family refusing for thorough neuro assessment, and states this would cause her discomfort. - Skin Skin exam: Present: dry, pallor, warm Palliative Quality Palliative Quality: Screen for Code Status: Yes, Screen for Goals of Care: Yes, Screen for Pain: Yes, If Pain Regimen Started, Initiate Bowel Regimen: Yes, Screen for Nausea/Vomitting: Yes Code Status: 02/16/17 11:29 CODE [Resuscitation Status: Active] [RES] Routine Comment: Resuscitation Status: DNR-Comfort Care - Labs CBC & Chem 7: 02/14/17 02:29 02/14/17 02:29 - ABG Interpretation ABG results: PT/INR, D-dimer PT 12.0 Seconds (9.4-12.1) 02/11/17 07:05 Consult Discharge Plan - Plan Referrals: Dirk Zavala MD [Primary Care Provider] -
--- NOTE | 2017-02-17 10:10 | Discharge Summary ---
Date of Encounter: 02/17/17 Time of Encounter: 10:08 - Discharge Diagnosis (1) Atrial fibrillation with rapid ventricular response Priority: Primary Status: Acute (2) Collapse of right lung Priority: Primary Status: Acute (3) Community acquired pneumonia Priority: Primary Status: Acute (4) Breast cancer Priority: Secondary Status: Acute Qualifiers: Breast location: unspecified site of breast Estrogen receptor status: unspecified Patient sex: female Laterality: unspecified laterality Qualified Code(s): C50.919 - Malignant neoplasm of unspecified site of unspecified female breast (5) DVT prophylaxis Priority: Secondary Status: Acute - Discharge Medications Home Medications: LORazepam Oral Conc [Ativan Oral Conc] 1 mg SL Q4H PRN 02/17/17 [Rx] Allergies/Adverse Reactions: Allergies diphenhydramine [From Benadryl] Adverse Reaction (Verified 02/10/17 15:13) Hallucinating WENT "NUTS" Procedures/tests Complete & Pending: Procedures Performed prior 72 hours Category Date Time Status ECG 12 lead ECG [ECG] Stat Y 02/15/17 23:28 Completed Date of admission: 02/10/17 17:57 Primary care physician: Giselle Izaguirre Consults: 02/10/17 20:59 Consult to Nutrition [CONS] Routine Comment: Consulting Provider: NUTRITION Reason for Dietary Consult: MST Score 02/11/17 11:40 Consult to Hydrogen Plant Operations Manager [CONS] Routine Reason for SW Consult: Referral to rehab; possibly [facility] 02/12/17 16:43 Consult to Occupational Therapy [CONS] Routine Comment: Evaluate, develop and implement POC Reason for Consult: Assessment for placement Consult to Physical Therapy [CONS] Routine Comment: Evaluate, develop and implement POC Reason for Consult: assessment for discharge 02/16/17 11:33 Consult to Palliative Care [CONS] Routine Comment: Consulting Provider: [facility] [place] Reason for Consult: Terminal secondary to lung cancer. Interested in comfort measures. Call Completed: Yes Discharging clinician: Edgar Lopez - Patient Status Disposition: Hospice - Medical Facility Condition: Fair Functional capacity at discharge: bed bound Overall status at discharge: patient is not back to baseline - Discharge Instructions Follow Up With: Dirk Zavala MD [Primary Care Provider] - (Patient is going pallative no PCP appointment needed per Cynthia Vo.) - Diet and Activity Activity: increase activity as tolerated Diet: low fat, low cholesterol Interval History: Ms. Bains is a 86 year old female present to ER for weak and shortness of breath for 13 days. Patient is demented and history obtained from patient's daughter Shanika Miguel. Patient has no fever. The patient has a severe cough, with yellowish sputum. Patient has no chest pain but did complain heavy chest. Patient has no nausea, no diaphoresis, no sore throat, no runny nose. Patient can flat during night. In emergency room, CXR shows right lung collapse. CT chest shows suspected right lung tumor. Before patient was transferred to floor, she developed A. fib with RVR. Cardizem drip was started from ER. Patient will admitted for further management. Hospital course: Patient was hospitalized. Pulmonology was consulted. Patient underwent thoracentesis. Large-volume thoracentesis was done. It was transudative in nature. Pleural fluid cytology does show atypical cells. Patient has a lung mass and a strong smoking history. Together all that goes in favor of malignancy likely. Discussed with the family at length regarding goals of care and also discussed with the patient at length about the same. Family and patient does not want to proceed with any further invasive procedure/ investigations/workup in terms of diagnostic purposes. Patient clinically deteriorated. She was transferred to stepdown unit. Intravenous shannon blockers/amiodarone started. Patient was steadily with the atrial fibrillation with the rapid ventricular rate. Patient and family wished no more further investigations/active management. They prefer comfort care Plan: Palliative consult was called. Patient will be transferred to [facility] bed. Appreciated input from palliative care - Time Spent with Patient Total time spent providing and/or coordinating discharge services: - Constitutional Vitals: Temp Pulse Resp BP Pulse Ox 96.4 F L 75 26 126/45 85 02/17/17 07:44 02/17/17 08:10 02/17/17 07:44 02/17/17 07:44 02/17/17 07:44 General appearance: Present: cachectic, mild distress - Head Head exam: Present: atraumatic, normocephalic - Eye Eye exam: Present: PERRL, conjuntiva pink, sclera anicteric Pupils: Present: PERRL - Neck Neck exam general surgery: Present: supple, trachea midline. Absent: lymphadenopathy - Respiratory Respiratory exam: Present: CTAB. Absent: accessory muscle use, rales, rhonchi, wheezes - Cardiovascular Cardiovascular exam: Present: RRR, +S1, +S2. Absent: diastolic murmur, gallop, rubs, systolic murmur - GI/Abdominal GI/Abdominal exam: Present: normal bowel sounds, soft, no peritoneal signs. Absent: distended, tenderness - Extremities Exam Extremities exam: Present: warm, radial pulses palpable and symetrical. Absent : calf tenderness, cyanotic, pedal edema - Neurological Exam Neurological exam: Present: CN II-XII intact, oriented X3, no focal deficits. Absent: pronater drift, facial droop, speech deficit - Skin Skin exam: Present: dry, intact - VTE Documentation of Mechanical Device: Intermittent pneumatic compression device
== END 2017-02-17 11:31 | disposition hospice, inpatient (51) | DRG 205 ==
LOC: EMEROO 10:23 → 2ANU 10:23 → ICNU 17:04 → SUATTDRO 17:57 → 2ANU 18:02 → 2NNU 02-16 04:52
PROVIDERS: ADMIT Internal Medicine; ATTEND Internal Medicine

== ENCOUNTER 2017-02-17 09:40 | Inpatient (IN) ==
[2017-02-17] MEDS ORDERED: Bisacodyl 10 MG RECTAL SUPPOSITORY RC PRN (10:56)
[2017-02-17] MEDS ORDERED: *HR* LORazepam Oral Conc 2 MG/ML PO PRN (10:56)
[2017-02-17] MEDS: Morphine Oral CONC 5 MG/0.25 ML ORAL.SYG PO PRN ×9 (11:57→22:55)
--- NOTE | 2017-02-17 12:29 | Palliative - Consult Note ---
Date of Encounter: 02/17/17 Time of Encounter: 12:00 - Assessment and Plan (1) Goals of care, counseling/discussion Current Visit: Yes Status: Acute Assessment and plan: Transition to GIP today for symptom management. IV medications and IV amiodarone were discontinued this am. IV access was lost and will begin sublingual meds and titrate as necessary for comfort. Discussed with daughter, Stew, who agrees with the plan. (2) Generalized pain Current Visit: No Status: Acute Assessment and plan: Roxanol began today and will titrate for comfort (3) Dyspnea Current Visit: No Status: Acute Assessment and plan: Roxanol began today. Oxygen continues for comfort. Family asked for nebulizers to be discontinued as they were causing her increased agitation. Qualifiers: Dyspnea type: unspecified Qualified Code(s): R06.00 - Dyspnea, unspecified (4) Difficulty clearing secretions Current Visit: Yes Status: Acute Assessment and plan: Atropine drops PRN. (5) Respiratory failure Current Visit: Yes Status: Acute Qualifiers: Chronicity: unspecified Respiratory failure complication: unspecified whether with hypoxia or hypercapnia Qualified Code(s): J96.90 - Respiratory failure, unspecified, unspecified whether with hypoxia or hypercapnia (6) Atrial fibrillation with rapid ventricular response Current Visit: No Status: Acute (7) Acute CHF (congestive heart failure) Current Visit: No Status: Acute Qualifiers: Congestive heart failure type: unspecified congestive heart failure type Qualified Code(s): I50.9 - Heart failure, unspecified (8) Pulmonary mass Current Visit: No Status: Acute Palliative-CN HPI - Data of Consult Consult date: 02/17/17 Requesting Physician: Dirk Mejía MD Primary Care Provider: PCP NONE - Consult Narrative Palliative Care/Comfort Measures: Hospice care History of present illness: Ms. Bains is a 86 year old female presented originally to ER for weak and shortness of breath that had increased over the past couple of weeks. Patient is demented and history obtained from patient's daughter Shanika Miguel. , CXR demonstated right lung collapse. Pulmonology was consulted during her stay. CT chest showed suspected right lung tumor. She was treated with IV therapy, bronchodilators, oxygen, and also had a thoracentesis, which was transudative in nature. Patient then went into A. fib with RVR. She was unsuccessfully managed with Cardizem and required IV Amiodarone drip to manage her a fib. She was becoming more hypoxic, and oxygen has actually been increased to 10LPM. She continued to decline with decreasing mental status and profound weakness. She eventually was not alert enough to eat/drink, IV access was lost, and she is unable to take po medications. Family decided this am, to stop all cardiac medications, and anything not related to her comfort. CC: Dirk Mejía MD Past Med Surg Social Fam HX - Past Medical History Medical history: cancer Psychiatric history: no psych history - Social History Smoking Status: Current every day smoker Smokeless Tobacco Status: No Alcohol use: none Drug use: none Medications and Allergies LORazepam Oral Conc [Ativan Oral Conc] 1 mg SL Q4H PRN 02/17/17 [Rx] Allergies diphenhydramine [From Benadryl] Adverse Reaction (Verified 02/10/17 15:13) Hallucinating WENT "NUTS" ROS unobtainable: due to mental status Palliative Care-Exam - Head Head Exam: Present: normal inspection, normocephalic - Respiratory Respiratory exam: Present: decreased breath sounds, CTAB Additional comments: Rhonchi throughout anterior lung william - Cardiovascular Cardiovascular exam: Present: irregular rhythm, tachycardia - GI/Abdominal Exam GI/Abdominal exam: Present: normal bowel sounds, soft - Additional comments: Attends on - Extremities Exam Extremities exam: Present: normal capillary refill, normal inspection - Neurological Exam Additional comments: Unresponsive to verbal and tactile stimuli - Skin Skin exam: Present: dry, pallor Consult Discharge Plan - Plan Referrals: NONE,PCP [Primary Care Provider] - Palliative Quality Palliative Quality: Screen for Code Status: Yes, Screen for Goals of Care: Yes, Screen for Pain: Yes, If Pain Regimen Started, Initiate Bowel Regimen: Yes, Screen for Nausea/Vomitting: Yes Code Status: 02/17/17 10:56 Resuscitation Status: Active [RES] Routine Comment: Resuscitation Status: DNR-Comfort Care
[2017-02-17] MEDS: Atropine Sulfate 1% 40 DROP/2 ML BOTTLE SL PRN ×3 (14:07→16:46)
--- NOTE | 2017-02-18 09:09 | Palliative Progress Note ---
Date of Encounter: 02/18/17 Time of Encounter: 09:05 - Assessment and plan (1) Restlessness Current Visit: Yes Status: Acute Assessment and plan: Continue Ativan PRN. Received x1 last 24 hours. monitor (2) Goals of care, counseling/discussion Current Visit: Yes Status: Acute Assessment and plan: Continue inpt hospice care. Patient resp more shallow and she has developed significant mottling overnight. Heart rate very irreg. Actively dying - Notified family that she may pass the next 24 hours. (3) Generalized pain Current Visit: No Status: Acute (4) Dyspnea Current Visit: No Status: Acute Assessment and plan: Required Roxanol x9 doses yesterday. Appears comfortable at this time. Monitor. She may need dosage increase. Qualifiers: Dyspnea type: unspecified Qualified Code(s): R06.00 - Dyspnea, unspecified (5) Difficulty clearing secretions Current Visit: Yes Status: Acute Assessment and plan: Continue Atropine drops. Received x3 last 24 hours (6) Respiratory failure Current Visit: Yes Status: Acute Qualifiers: Chronicity: unspecified Respiratory failure complication: unspecified whether with hypoxia or hypercapnia Qualified Code(s): J96.90 - Respiratory failure, unspecified, unspecified whether with hypoxia or hypercapnia (7) Atrial fibrillation with rapid ventricular response Current Visit: No Status: Acute (8) Acute CHF (congestive heart failure) Current Visit: No Status: Acute Qualifiers: Congestive heart failure type: unspecified congestive heart failure type Qualified Code(s): I50.9 - Heart failure, unspecified (9) Pulmonary mass Current Visit: No Status: Acute - Time Spent With Patient Total time spent is greater than 50% in coordination of care (as documented) at patient's floor/unit and/or counseling patient: - Subjective Interval history: Patient unresponsive, has not aroused for family. Resp shallow, remain fairly regular. Lower extremities and bilateral hands mottled and cool to touch. Appears comfortable. Did require Roxanol frequently yesterday. Family at bedside. - Constitutional General appearance: Present: no acute distress - Respiratory Respiratory exam: Present: decreased breath sounds Additional comments: Resp shallow. Breath sounds fairly clear - Cardiovascular Cardiovascular exam: Present: irregular rhythm, tachycardia - GI/Abdominal GI/Abdominal exam: Present: hypoactive bowel sounds, soft - Extremities Exam Additional comments: Lower extremities mottled bilaterally, as well as hands. Extremities cool to touch - Neurological Exam Additional comments: Unresponsive, does not arouse to verbal or tactile stimuli - Skin Skin exam: Present: dry, pallor Palliative Quality Palliative Quality: Screen for Code Status: Yes, Screen for Goals of Care: Yes, Screen for Pain: Yes, If Pain Regimen Started, Initiate Bowel Regimen: Yes, Screen for Nausea/Vomitting: Yes Code Status: 02/17/17 10:56 Resuscitation Status: Active [RES] Routine Comment: Resuscitation Status: DNR-Comfort Care Consult Discharge Plan - Plan Referrals: NONE,PCP [Primary Care Provider] -
[2017-02-18] MEDS: Morphine Oral CONC 5 MG/0.25 ML ORAL.SYG PO PRN (09:10)
--- NOTE | 2017-02-18 12:58 | Death Note ---
Discharge Sum: Summary - Date and Time Date of admission: 02/17/17 11:32 Date of : 02/18/17 Time of : 12:15 - Summary Details: Patient was admitted to in hospice yesterday after she had been hospitalized for respiratory failure, pneumonia, atrial fibrillation with RVR, CHF, lung mass and had deterioration despite acute treatment. Family desired transition to hospice care and comfort medications only. She peacefully with family at her bedside at 1215 today. Hospice was notified. - Additional Data Confirmation of as documented by pronouncing clinician: no pulse, no respirations, no heart sounds Family: at bedside Attending physician: Dirk Mejía MD Was code activated?: No Autopsy requested?: No unemployment examiner notified?: No Organ bank notified?: Yes Hospice patient?: Yes Discharge Sum: Diag - PCOD Probable Cause of : Respiratory arrest Discharge Sum: Prov - Provider Primary care physician: PCP NONE Admitting clinician: Cynthia Vo Attending physician on admission: Dirk Mejía Consults: 02/17/17 10:56 Consult to Palliative Care [CONS] Routine Comment: Consulting Provider: Palliative Care Paula Reason for Consult: GIP Call Completed: No
== END 2017-02-18 14:37 | disposition expired | DRG 189 ==
LOC: 2ANU 11:32
PROVIDERS: ADMIT Family Medicine Hospice and Palliative Medicine; ATTEND Family Medicine Hospice and Palliative Medicine